=== PATIENT | female | born 1955 | race Caucasian/White ===

== ENCOUNTER 2016-12-05 14:11 | Inpatient (IN) ==
[2016-12-05] MEDS ORDERED: Vancomycin 1,000 MG in D5% in Water 250 ML IVPB ONE (14:25)
[2016-12-05] MEDS ORDERED: Piperacillin/Tazobactam 3.375 GM in D5% in Water (Mini-Bag+) 100 ML IVPB ONE (14:25)
--- NOTE | 2016-12-05 14:26 | Emergency Department Note ---
Disposition Clinical Impression: Severe sepsis Pneumonia Qualifiers: Pneumonia type: due to unspecified organism Laterality: right Lung location: unspecified part of lung Qualified Code(s): J18.9 - Pneumonia, unspecified organism Disposition: Admitted As Inpatient Condition: Critical Fever HPI - General Chief Complaint: ED Fever Stated Complaint: Fever, diarrhea Time Seen by Provider: 12/05/16 14:19 Source: patient, EMS Limitations: altered mental status Nursing Notes Reviewed: Yes Vital Signs Reviewed: Yes - History of Present Illness HPI Narrative: 61-year-old female presents to the emergency department via EMS with altered mental status and fever. Patient states that she has not been feeling well for the last couple days she denies specific symptoms that she appears to be shaking while in the emergency department. She answers all questions appropriately. She denies shortness of breath denies chest pain denies abdominal pain. Obviously she has has fevers and she appears ill. 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 Source: subjective Associated symptoms: Reports: denies other symptoms Improves with: nothing Worsens with: nothing Treatments prior to arrival fever: none - Related Data Home Medications Medication Instructions Recorded Confirmed Furosemide [Lasix] 60 mg PO BID 09/20/16 12/05/16 Pravastatin Sodium [Pravachol] 20 mg PO HS 09/20/16 12/05/16 Spironolactone [Aldactone] 100 mg PO DAILY 09/20/16 12/05/16 Venlafaxine XR (24 HR) [Effexor XR] 37.5 mg PO Q48H 09/20/16 12/05/16 Albuterol Sulfate [Albuterol 2 puff IH Q4H PRN 12/05/16 12/05/16 Inhaler] Ammonium Lactate [Katia-Hydrolac] 1 appl TP BID PRN 12/05/16 12/05/16 Buspirone HCl [Buspar] 5 mg PO BID 12/05/16 12/05/16 Fluticasone Propionate Nasal 50 - 100 mcg NS DAILY PRN 12/05/16 12/05/16 [Flonase] Lactulose 20 gm PO QID 12/05/16 12/05/16 Omeprazole [PriLOSEC] 40 mg PO QAM 12/05/16 12/05/16 Ondansetron HCl [Zofran] 4 mg PO Q8H PRN 12/05/16 12/05/16 Ranitidine HCl [Zantac] 150 mg PO HS 12/05/16 12/05/16 Rifaximin [Xifaxan] 550 mg PO BID 12/05/16 12/05/16 hydrOXYzine HCl [Hydroxyzine HCl] 25 mg PO TID PRN 12/05/16 12/05/16 Allergies Allergy/AdvReac Type Severity Reaction Status Date / Time egg Allergy Vomiting Verified 12/05/16 14:25 lactose AdvReac Gastrointestinal Verified 12/05/16 14:25 Upset milk AdvReac Gastrointestinal Verified 12/05/16 14:25 Upset Sulfa (Sulfonamide AdvReac Gastrointestinal Verified 12/05/16 14:25 Antibiotics) Upset Tetracycline AdvReac Hives Verified 12/05/16 14:25 vitamin E (d-alpha AdvReac Hives Verified 12/05/16 14:25 tocopherol) [vitamin E] vitamin d 3 Allergy Rash Uncoded 07/02/16 19:05 vitamin B-12 AdvReac Hives Uncoded 07/02/16 19:05 All systems ED: reviewed and negative except as stated. 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 - General Limitations: altered mental status General appearance: alert - Head Head exam: atraumatic - Eye Eye exam: Present: normal appearance, PERRL - ENT ENT exam: normal exam, normal oropharynx - Neck Neck exam: Present: normal inspection - Chest Chest inspection: Present: normal inspection, symmetric chest wall rise - Respiratory Respiratory exam: Present: normal lung sounds bilaterally. Absent: respiratory distress - Cardiovascular Cardiovascular exam: Present: regular rate, normal rhythm - Abdominal Exam Abdominal exam: Present: soft, Non-Tender - Extremities Exam Extremities exam: Present: normal inspection - Neurological Exam Neurological exam: Present: alert, oriented X3 - Psychiatric Psychiatric exam: Present: normal affect, anxious - Skin Skin exam: Present: warm, dry, intact Course Vital Signs Temperature 102.3 F H 12/05/16 14:12 Pulse Rate 120 12/05/16 14:12 Respiratory Rate 22 12/05/16 14:12 Blood Pressure 85/41 12/05/16 14:12 O2 Sat by Pulse Oximetry 91 12/05/16 14:12 Temperature 102.3 F H 12/05/16 14:12 Pulse Rate 94 12/05/16 17:10 Respiratory Rate 16 12/05/16 17:10 Blood Pressure 81/35 12/05/16 17:10 O2 Sat by Pulse Oximetry 95 12/05/16 17:10 Oxygen Delivery Oxygen Delivery Nasal Cannula Procedures - Central Line Placement Right Femoral Central Line Inserted*: Yes Central Line Insertion: emergent Consent Obtained: written consent Procedural Pause: verify patient name and date of Patient Placed on Monitor/Pulse Ox: Yes During the Procedure: clinician is wearing sterile gloves, cap, mask,& gown during insertion Central Line Prep: Chlorhexidine scrub Prep the Procedure Site: apply chloraprep to the skin using a back and forth scrubbing motion Local Anesthetic: lidocaine 1% Amount of anesthesia used (mL): 4 Ultrasound Used for Placement: Yes Central Line Lumen Inserted: triple Post Procedure: sutured in place, good blood return, all ports aspirated, flushed, capped, sterile dressing applied, guide wire removed and visualized Patient Tolerated Procedure: well, no complications Complications: none Name of Clinician Inserting Central Line: Judith BRITO Date: 12/05/16 Additional Comments: Patient tolerated procedure well. Fever - MDM Narrative Medical decision making narrative: We will start sepsis protocol including IV antibiotic therapy. Patient was hypotensive upon arrival and will require aggressive fluid management as well as aggressive treatment for possible sepsis. We will also check for sources of fever and admit patient once we have some additional data. I spoke with the hospitalist at 3:35 PM who suggested talking to the pipe line repairer to decide if she could benefit from a day in the ICU. I spoke with the pipe line repairer and we will bring her into the ICU for at least one day of fluid resuscitation and additional management. The patient was started on triple antibiotic therapy while in the emergency Department aggressive fluid resuscitation was also performed. Her mental status improvement of blood pressure systolically remained in the 95 range. Charge Entry came and evaluated patient agreed to accept her to the intensive care unit. Wanted a central line placement was done please see central line noted. Also wanted CT scans ordered unfortunately patient's blood pressure was too low to go to CT scanner. We did contact them once central line was placed determine if they wanted her to go to CT scan or up to the ICU they opted for ICU. Patient continued to mentate well throughout her stay but she had a lower blood pressure in the 85-95 range despite 3-4 L of IV hydration. - Lab Data Lab results reviewed: Yes I reviewed the patient's lab results. Result diagrams: 12/05/16 14:25 12/05/16 14:25 Lab Results 12/05/16 12/05/16 12/05/16 Range/Units 14:25 14:25 14:25 WBC 3.8 L (4.3-11.1) K/mcL RBC 3.45 L (3.82-4.97) M/mcL Hgb 12.0 (11.5-15.4) g/dL Hct 35.1 L (35.3-44.9) % MCV 101.7 H (83.0-100.0) fL MCH 34.8 H (28.0-33.3) pg MCHC 34.2 (31.6-35.5) g/dL RDW 15.4 H (11.5-14.5) % Plt Count 89 L (140-400) K/mcL MPV 8.6 L (9.4-12.4) fL Immature Gran % 1.0 (0-4) % Seg Neutrophils % 86.9 % Lymphocytes % 9.4 % Monocytes % 2.1 % Eosinophils % 0.3 % Basophils % 0.3 % Neutrophils # 3.3 (1.6-8.9) K/mcL Lymphocytes # 0.4 L (0.6-4.6) K/mcL Monocytes # 0.1 (0.0-1.3) K/mcL Eosinophils # 0.0 (0.0-0.6) K/mcL Basophils # 0.0 (0.0-0.2) K/mcL Nucleated RBCs/100 WBC 0.5 H (0) /100 WBC Immature Plt Fraction 1.4 (1.1-6.1) % PT 22.7 H (9.4-12.1) Seconds INR 2.1 APTT 47.6 H (26.0-36.0) Seconds Sodium 134 L (136-145) mEq/L Potassium 2.6 L (3.5-4.5) mEq/L Chloride 104 (98-109) mEq/L Carbon Dioxide 22 (19-29) mEq/L BUN 10 (7-20) mg/dL Creatinine 1.13 H (0.57-1.11) mg/dL Est GFR ( Amer) 59 L (> 60) Est GFR (Non-Af Amer) 49 L (> 60) BUN/Creatinine Ratio 9 (6-26) Glucose 61 L (70-99) mg/dL Calculated Osmolality 275 L (280-300) Lactic Acid (0.5-2.2) mmol/L Calcium 8.0 L (8.6-10.8) mg/dL Phosphorus 1.5 L (2.3-4.7) mg/dL Magnesium 0.9 L (1.6-2.6) mg/dL Total Bilirubin 5.1 H (0.2-1.2) mg/dL Direct Bilirubin 2.1 H (0.0-0.5) mg/dL Indirect Bilirubin 3.0 H (0.0-1.2) mg/dL AST 29 (5-34) Units/L ALT 17 (0-55) Units/L Alkaline Phosphatase 112 (38-126) Units/L Ammonia (18-72) mcmol/L Troponin I (0-0.03) ng/mL B-Natriuretic Peptide (0-100) pg/mL Serum Total Protein 5.6 L (6.0-8.3) g/dL Albumin 2.0 L (3.5-5.0) g/dL Globulin 3.6 H (2.4-3.5) g/dL Albumin/Globulin Ratio 0.6 L (1.1-2.2) 12/05/16 12/05/16 12/05/16 Range/Units 14:25 14:25 14:25 WBC (4.3-11.1) K/mcL RBC (3.82-4.97) M/mcL Hgb (11.5-15.4) g/dL Hct (35.3-44.9) % MCV (83.0-100.0) fL MCH (28.0-33.3) pg MCHC (31.6-35.5) g/dL RDW (11.5-14.5) % Plt Count (140-400) K/mcL MPV (9.4-12.4) fL Immature Gran % (0-4) % Seg Neutrophils % % Lymphocytes % % Monocytes % % Eosinophils % % Basophils % % Neutrophils # (1.6-8.9) K/mcL Lymphocytes # (0.6-4.6) K/mcL Monocytes # (0.0-1.3) K/mcL Eosinophils # (0.0-0.6) K/mcL Basophils # (0.0-0.2) K/mcL Nucleated RBCs/100 WBC (0) /100 WBC Immature Plt Fraction (1.1-6.1) % PT (9.4-12.1) Seconds INR APTT (26.0-36.0) Seconds Sodium (136-145) mEq/L Potassium (3.5-4.5) mEq/L Chloride (98-109) mEq/L Carbon Dioxide (19-29) mEq/L BUN (7-20) mg/dL Creatinine (0.57-1.11) mg/dL Est GFR ( Amer) (> 60) Est GFR (Non-Af Amer) (> 60) BUN/Creatinine Ratio (6-26) Glucose (70-99) mg/dL Calculated Osmolality (280-300) Lactic Acid 5.3 H* (0.5-2.2) mmol/L Calcium (8.6-10.8) mg/dL Phosphorus (2.3-4.7) mg/dL Magnesium (1.6-2.6) mg/dL Total Bilirubin (0.2-1.2) mg/dL Direct Bilirubin (0.0-0.5) mg/dL Indirect Bilirubin (0.0-1.2) mg/dL AST (5-34) Units/L ALT (0-55) Units/L Alkaline Phosphatase (38-126) Units/L Ammonia (18-72) mcmol/L Troponin I 0.02 (0-0.03) ng/mL B-Natriuretic Peptide 117 H (0-100) pg/mL Serum Total Protein (6.0-8.3) g/dL Albumin (3.5-5.0) g/dL Globulin (2.4-3.5) g/dL Albumin/Globulin Ratio (1.1-2.2) 12/05/16 Range/Units 15:07 WBC (4.3-11.1) K/mcL RBC (3.82-4.97) M/mcL Hgb (11.5-15.4) g/dL Hct (35.3-44.9) % MCV (83.0-100.0) fL MCH (28.0-33.3) pg MCHC (31.6-35.5) g/dL RDW (11.5-14.5) % Plt Count (140-400) K/mcL MPV (9.4-12.4) fL Immature Gran % (0-4) % Seg Neutrophils % % Lymphocytes % % Monocytes % % Eosinophils % % Basophils % % Neutrophils # (1.6-8.9) K/mcL Lymphocytes # (0.6-4.6) K/mcL Monocytes # (0.0-1.3) K/mcL Eosinophils # (0.0-0.6) K/mcL Basophils # (0.0-0.2) K/mcL Nucleated RBCs/100 WBC (0) /100 WBC Immature Plt Fraction (1.1-6.1) % PT (9.4-12.1) Seconds INR APTT (26.0-36.0) Seconds Sodium (136-145) mEq/L Potassium (3.5-4.5) mEq/L Chloride (98-109) mEq/L Carbon Dioxide (19-29) mEq/L BUN (7-20) mg/dL Creatinine (0.57-1.11) mg/dL Est GFR ( Amer) (> 60) Est GFR (Non-Af Amer) (> 60) BUN/Creatinine Ratio (6-26) Glucose (70-99) mg/dL Calculated Osmolality (280-300) Lactic Acid (0.5-2.2) mmol/L Calcium (8.6-10.8) mg/dL Phosphorus (2.3-4.7) mg/dL Magnesium (1.6-2.6) mg/dL Total Bilirubin (0.2-1.2) mg/dL Direct Bilirubin (0.0-0.5) mg/dL Indirect Bilirubin (0.0-1.2) mg/dL AST (5-34) Units/L ALT (0-55) Units/L Alkaline Phosphatase (38-126) Units/L Ammonia 34 (18-72) mcmol/L Troponin I (0-0.03) ng/mL B-Natriuretic Peptide (0-100) pg/mL Serum Total Protein (6.0-8.3) g/dL Albumin (3.5-5.0) g/dL Globulin (2.4-3.5) g/dL Albumin/Globulin Ratio (1.1-2.2) - Radiology Data Radiology results reviewed: Yes I reviewed the patient's radiology results. Patient with right-sided effusion and pneumonia. - EKG Data EKG attestation: Yes I reviewed and interpreted this EKG. EKG shows normal: sinus rhythm Rate: tachycardia Interpretation: no acute changes Critical Care Time Critical Care Time: Yes Total Critical Care Time: 70 Attestation: Total care time 35 minutes managing patient's sepsis.
[2016-12-05] MEDS ORDERED: Ibuprofen 600 MG TABLET PO ONE (14:27)
[2016-12-05] MEDS: 0.9 % Sodium Chloride 1,000 ML IVC SCH ×3 (14:33→19:44)
[2016-12-05 14:36] LABS: Eosinophils % 0.3 %; Hematocrit 35.1 % (35.3-44.9); Red Cell Distribution Width 15.4 % (11.5-14.5)
[2016-12-05 14:38] LABS: Basophils % 0.3 %; Immature Platelets 1.4 % (1.1-6.1); Lymphocytes # 0.4 K/mcL (0.6-4.6); Lymphocytes % 9.4 %; Mean Corpuscular HGB Conc 34.2 g/dL (31.6-35.5); Mean Corpuscular Hemoglobin 34.8 pg (28.0-33.3); Mean Corpuscular Volume 101.7 fL (83.0-100.0); Mean Platelet Volume 8.6 fL (9.4-12.4); Monocytes # 0.1 K/mcL (0.0-1.3); Monocytes % 2.1 %; Neutrophils # 3.3 K/mcL (1.6-8.9); Nucleated Red Blood Cells 0.5 /100 WBC (0); Red Blood Count 3.45 M/mcL (3.82-4.97); Segmented Neutrophils % 86.9 %
[2016-12-05 14:41] LABS: INR 2.1; Prothrombin Time 22.7 Seconds (9.4-12.1)
[2016-12-05 14:44] LABS: Activated Partial Thrombo Time 47.6 Seconds (26.0-36.0)
[2016-12-05 14:53] LABS: Albumin/Globulin Ratio 0.6 (1.1-2.2); Bilirubin,Direct 2.1 mg/dL (0.0-0.5); Bilirubin,Total 5.1 mg/dL (0.2-1.2); Globulin 3.6 g/dL (2.4-3.5); Magnesium 0.9 mg/dL (1.6-2.6); Phosphorous 1.5 mg/dL (2.3-4.7); Platelet Count 89 K/mcL (140-400); Potassium 2.6 mEq/L (3.5-4.5); Total Protein 5.6 g/dL (6.0-8.3)
[2016-12-05] MEDS ORDERED: Levofloxacin 750 MG/150 ML 750 MG/150 ML BAG IVPB ONE (15:06)
[2016-12-05] MEDS ORDERED: 0.9 % Sodium Chloride 1,000 ML IVC ONE ×2 (15:50→18:48)
--- NOTE | 2016-12-05 16:07 | Pulmonology History & Physical ---
<Evens Carr - Last Filed: 12/05/16 17:03> Date of Encounter: 12/05/16 Time of Encounter: 16:05 Assessment and Plan (1) Severe sepsis Current visit: Yes Status: Acute Likely secondary to pneumonia, but will obtain CT ab/pelvis to look for additional sources She was given Levaquin and Zosyn which we will continue Cultures obtained in the ED, awaiting results If she does not respond to fluid resuscitation, will need CVC for pressor (2) Community acquired pneumonia Current visit: Yes Status: Acute Treatment with Levaquin/Zosyn as above She does not have history of frequent hospitalizations and has no risk for MRSA Qualifiers: Qualified Code(s): J18.9 - Pneumonia, unspecified organism (3) DELMI (acute kidney injury) Current visit: Yes Status: Acute Creatinine mildly elevated at 1.13, without any baseline dysfunction Likely pre-renal in setting of sepsis Will start on maintenance fluids and trend Cr, electrolytes (4) Lactic acidosis Current visit: Yes Status: Acute Lactic acid elevated at 7.5 upon admission secondary to sepsis Will start fluid hydration as above and trend levels tomorrow (5) Hypokalemia Current visit: Yes Status: Acute Potassium initially 2.6 likely secondary to GI losses Will start on replacement orders and check BMP in AM (6) Hypomagnesemia Current visit: Yes Status: Acute Initial levels were 0.9 Will start on replacement protocol (7) DVT prophylaxis Current visit: Yes Status: Acute Heparin 5000 units BID History of Present Illness Chief complaint: fever HPI: Ms. Rivas is a 61 year old female who presents with fever that started earlier this morning. is at bedside and reported the temperature to be 103. She complained of nausea, vomiting, generalized weakness and back pain that started today as well. Denies any issues with breathing, coughing, urinary or GI problems. 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 Patient does not use oxygen at home but does have as needed rescue inhalers. Past Med Surg Social Fam HX - Past Medical History Medical history: cirrhosis, hepatitis, hypertension, liver disease Psychiatric history: anxiety, depression - Past Surgical History Surgical History: cholecystectomy - Social History Smoking Status: Current every day smoker Smokeless Tobacco Status: No Alcohol use: none Drug use: marijuana Medications and Allergies Furosemide [Lasix] 60 mg PO BID 09/20/16 [History] Pravastatin Sodium [Pravachol] 20 mg PO HS 09/20/16 [History] Spironolactone [Aldactone] 100 mg PO DAILY 09/20/16 [History] Venlafaxine XR (24 HR) [Effexor XR] 37.5 mg PO Q48H 09/20/16 [History] Albuterol Sulfate [Albuterol Inhaler] 2 puff IH Q4H PRN 12/05/16 [History] Ammonium Lactate [Katia-Hydrolac] 1 appl TP BID PRN 12/05/16 [History] Buspirone HCl [Buspar] 5 mg PO BID 12/05/16 [History] Fluticasone Propionate Nasal [Flonase] 50 - 100 mcg NS DAILY PRN 12/05/16 [ History] Lactulose 20 gm PO QID 12/05/16 [History] Omeprazole [PriLOSEC] 40 mg PO QAM 12/05/16 [History] Ondansetron HCl [Zofran] 4 mg PO Q8H PRN 12/05/16 [History] Ranitidine HCl [Zantac] 150 mg PO HS 12/05/16 [History] Rifaximin [Xifaxan] 550 mg PO BID 12/05/16 [History] hydrOXYzine HCl [Hydroxyzine HCl] 25 mg PO TID PRN 12/05/16 [History] 3 Allergy/AdvReac Type Severity Reaction Status Date / Time egg Allergy Vomiting Verified 12/05/16 14:25 lactose AdvReac Gastrointestinal Verified 12/05/16 14:25 Upset milk AdvReac Gastrointestinal Verified 12/05/16 14:25 Upset Sulfa (Sulfonamide AdvReac Gastrointestinal Verified 12/05/16 14:25 Antibiotics) Upset Tetracycline AdvReac Hives Verified 12/05/16 14:25 vitamin E (d-alpha AdvReac Hives Verified 12/05/16 14:25 tocopherol) [vitamin E] vitamin d 3 Allergy Rash Uncoded 07/02/16 19:05 vitamin B-12 AdvReac Hives Uncoded 07/02/16 19:05 All Systems: A 10-system review of systems was performed and is negative for pertinent findings except as documented above in the HPI. - Constitutional Constitutional: chills, fever(s), frequent falls, weakness - Respiratory Respiratory: no cough, no dyspnea, no dyspnea on exertion - Gastrointestinal Gastrointestinal: abdominal pain, nausea, vomiting - Genitourinary Genitourinary: no urinary frequency, no urinary incontinence Physical Examination General appearance: no acute distress, alert Eyes: nonicteric ENT: oropharynx moist Neck: supple Effort: normal Inspection: normal Auscultation: bilateral: clear Percussion: bilateral: not dull Tactile fremitus: bilateral: normal Cardiovascular: other (tachycardic, but regular) Gastrointestinal: normoactive bowel sounds, non-distended Integumentary: cellulitis (right anterior tibia) Extremities: no cyanosis, no edema, no clubbing Musculoskeletal: no deformities, ROM normal normal mental status, non-focal exam mood appropriate, affect normal Results - Laboratory Findings CBC and BMP: 12/05/16 14:25 12/05/16 14:25 PT/INR, D-dimer PT 22.7 Seconds (9.4-12.1) H 12/05/16 14:25 Abnormal lab findings: Abnormal lab results WBC 3.8 K/mcL (4.3-11.1) L 12/05/16 14:25 RBC 3.45 M/mcL (3.82-4.97) L 12/05/16 14:25 Hct 35.1 % (35.3-44.9) L 12/05/16 14:25 MCV 101.7 fL (83.0-100.0) H 12/05/16 14:25 MCH 34.8 pg (28.0-33.3) H 12/05/16 14:25 RDW 15.4 % (11.5-14.5) H 12/05/16 14:25 Plt Count 89 K/mcL (140-400) L 12/05/16 14:25 MPV 8.6 fL (9.4-12.4) L 12/05/16 14:25 Lymphocytes # 0.4 K/mcL (0.6-4.6) L 12/05/16 14:25 Nucleated RBCs/100 WBC 0.5 /100 WBC (0) H 12/05/16 14:25 PT 22.7 Seconds (9.4-12.1) H 12/05/16 14:25 APTT 47.6 Seconds (26.0-36.0) H 12/05/16 14:25 Sodium 134 mEq/L (136-145) L 12/05/16 14:25 Potassium 2.6 mEq/L (3.5-4.5) L 12/05/16 14:25 Creatinine 1.13 mg/dL (0.57-1.11) H 12/05/16 14:25 Est GFR ( Amer) 59 (> 60) L 12/05/16 14:25 Est GFR (Non-Af Amer) 49 (> 60) L 12/05/16 14:25 Glucose 61 mg/dL (70-99) L 12/05/16 14:25 Calculated Osmolality 275 (280-300) L 12/05/16 14:25 Lactic Acid 5.3 mmol/L (0.5-2.2) H* 12/05/16 14:25 Calcium 8.0 mg/dL (8.6-10.8) L 12/05/16 14:25 Phosphorus 1.5 mg/dL (2.3-4.7) L 12/05/16 14:25 Magnesium 0.9 mg/dL (1.6-2.6) L 12/05/16 14:25 Total Bilirubin 5.1 mg/dL (0.2-1.2) H 12/05/16 14:25 Direct Bilirubin 2.1 mg/dL (0.0-0.5) H 12/05/16 14:25 Indirect Bilirubin 3.0 mg/dL (0.0-1.2) H 12/05/16 14:25 B-Natriuretic Peptide 117 pg/mL (0-100) H 12/05/16 14:25 Serum Total Protein 5.6 g/dL (6.0-8.3) L 12/05/16 14:25 Albumin 2.0 g/dL (3.5-5.0) L 12/05/16 14:25 Globulin 3.6 g/dL (2.4-3.5) H 12/05/16 14:25 Albumin/Globulin Ratio 0.6 (1.1-2.2) L 12/05/16 14:25 <Mercy Rosales M - Last Filed: 12/05/16 22:33> Date of Encounter: 12/05/16 History of Present Illness HPI: Ms. Rivas is a 61 year old female Past Med Surg Social Fam HX - Family History Mother History Unknown: Yes Father Living Status: Cause of : aneurysm Sister Living Status: Age at : 55 Cause of : lung cancer All Systems: A 10-system review of systems was performed and is negative for pertinent findings except as documented above in the HPI. Physical Examination Vital Signs: Vital Signs, Last 4 Hours Temp Pulse Resp BP Pulse Ox 12/05/16 22:00 85 28 82/50 94 12/05/16 21:03 23 80/43 93 12/05/16 21:00 82 24 80/43 91 12/05/16 20:28 85 12/05/16 20:20 98.7 F 12/05/16 20:00 85 26 64/39 94 12/05/16 19:00 84 22 60/38 93 12/05/16 18:45 86 24 66/40 93 Results - Laboratory Findings CBC and BMP: 12/05/16 14:25 12/05/16 14:25 ABG ABG pH 7.38 pH Units (7.32-7.45) 12/05/16 17:55 ABG pCO2 26 mmHg (35-45) L 12/05/16 17:55 ABG pO2 68 mmHg (85-104) L 12/05/16 17:55 ABG O2 Saturation 93 % (95-98) L 12/05/16 17:55 PT/INR, D-dimer PT 22.7 Seconds (9.4-12.1) H 12/05/16 14:25 Abnormal lab findings: Abnormal lab results WBC 3.8 K/mcL (4.3-11.1) L 12/05/16 14:25 RBC 3.45 M/mcL (3.82-4.97) L 12/05/16 14:25 Hct 35.1 % (35.3-44.9) L 12/05/16 14:25 MCV 101.7 fL (83.0-100.0) H 12/05/16 14:25 MCH 34.8 pg (28.0-33.3) H 12/05/16 14:25 RDW 15.4 % (11.5-14.5) H 12/05/16 14:25 Plt Count 89 K/mcL (140-400) L 12/05/16 14:25 MPV 8.6 fL (9.4-12.4) L 12/05/16 14:25 Lymphocytes # 0.4 K/mcL (0.6-4.6) L 12/05/16 14:25 Nucleated RBCs/100 WBC 0.5 /100 WBC (0) H 12/05/16 14:25 PT 22.7 Seconds (9.4-12.1) H 12/05/16 14:25 APTT 47.6 Seconds (26.0-36.0) H 12/05/16 14:25 ABG pCO2 26 mmHg (35-45) L 12/05/16 17:55 ABG pO2 68 mmHg (85-104) L 12/05/16 17:55 ABG HCO3 15 mEq/L (21-27) L 12/05/16 17:55 ABG Total CO2 16 mEq/L (20-26) L 12/05/16 17:55 ABG O2 Saturation 93 % (95-98) L 12/05/16 17:55 ABG Base Excess -9 mEq/L (-2 to 3) L 12/05/16 17:55 Sodium 134 mEq/L (136-145) L 12/05/16 14:25 Potassium 2.6 mEq/L (3.5-4.5) L 12/05/16 14:25 Creatinine 1.13 mg/dL (0.57-1.11) H 12/05/16 14:25 Est GFR ( Amer) 59 (> 60) L 12/05/16 14:25 Est GFR (Non-Af Amer) 49 (> 60) L 12/05/16 14:25 Glucose 61 mg/dL (70-99) L 12/05/16 14:25 POC Glucose 92 (58-89) H 12/05/16 17:49 Calculated Osmolality 275 (280-300) L 12/05/16 14:25 Lactic Acid 7.5 mmol/L (0.5-2.2) H* 12/05/16 16:19 Calcium 8.0 mg/dL (8.6-10.8) L 12/05/16 14:25 Ionized Calcium 1.02 mmol/L (1.15-1.35) L 12/05/16 19:24 Phosphorus 1.5 mg/dL (2.3-4.7) L 12/05/16 14:25 Magnesium 0.9 mg/dL (1.6-2.6) L 12/05/16 14:25 Total Bilirubin 5.1 mg/dL (0.2-1.2) H 12/05/16 14:25 Direct Bilirubin 2.1 mg/dL (0.0-0.5) H 12/05/16 14:25 Indirect Bilirubin 3.0 mg/dL (0.0-1.2) H 12/05/16 14:25 B-Natriuretic Peptide 117 pg/mL (0-100) H 12/05/16 14:25 Serum Total Protein 5.6 g/dL (6.0-8.3) L 12/05/16 14:25 Albumin 2.0 g/dL (3.5-5.0) L 12/05/16 14:25 Globulin 3.6 g/dL (2.4-3.5) H 12/05/16 14:25 Albumin/Globulin Ratio 0.6 (1.1-2.2) L 12/05/16 14:25 Ur Leukocyte Esterase Small (Negative) H 12/05/16 16:00 Urine Microscopic RBC 3-5 per hpf (0-3) H 12/05/16 16:00 Urine Microscopic WBC 15-30 per hpf (0-3) H 12/05/16 16:00 Ur Squamous Epith Cells Many per lpf (None-Few) H 12/05/16 16:00 Urine Bacteria Many per hpf (None-Few) H 12/05/16 16:00 Ur Culture Indicated? YES (NO) A 12/05/16 16:00 - Attending Attestation I examined this patient and my medical decision-making was reviewed with the Resident Physician. I agree with the documented findings, disposition and treatment plan as described except to the extent set forth below. Patient seen and examined.I was called by the emergency room physician to see patient and when patient was evaluated she was not feeling good and complaining of back pain for 5 days. Labs, radiology, chart personally reviewed. Agree with resident's history and physical, assessment, plan with following comments: BEEF GRADER: Patient does not follows commands, Pulmonary: Acceptable oxygenation and ventilation. Cardiovascular: patient with more evidence of severe sepsis/septic shock and she had symptoms of hypoperfusion. Her skin does feel cold to touch plan poor capillary refill and vidence of hypoperfusion and she looks pale. Fluid resuscitation and central line placed for vasopressors.I have discussed with the emergency physician and as or central line placement. Resuscitation with colloid since she has history of liver cirrhosis GI: Nutrition per dietary and GI prophylaxis per routine. Patient has history of cirrhosis and that's makes the prognosis even worse. Heme: DVT prophylaxis per routine ID: Continue antibiotics and plan to de-escalation. Lactic acidosis and source is not clear currently and pneumonia is a possibility and appearance and is not identified, however intra-abdominal diseases cannot be ruled out. I have asked for a CT chest and also abdomen for further evaluation. Renal; urine out put and renal funtion reviewed. Endorcine: blood glucose is monitored Lines: all lines checked and no evidence of infections Skin: skin care to prevent pressure ulcers per nursing routine care discussed with the family at the bedside. I spent 35 min of Critical Care time with this patient. It involved decision making of high complexity to assess, manipulate, and support vital organ system failure and/or to prevent further life threatening deterioration of the patient' s condition. The time involved in the performance of separately reportable procedures was not counted toward critical care time.
[2016-12-05] MEDS ORDERED: Acetaminophen 325 MG TABLET PO PRN (16:18)
[2016-12-05] MEDS ORDERED: Naloxone 0.4 MG/ML INJ IVP PRN (16:18)
[2016-12-05 16:21] LABS: Bilirubin,Urine Negative (Negative); Blood,Urine Negative (Negative); Color,Urine Yellow (Yellow); Glucose,Urine (UA) Normal (Normal); Ketones,Urine Negative (Negative); Leukocyte Esterase,Urine Small (Negative); Nitrite,Urine Negative (Negative); PH,Urine 6.5 pH Units (5.0-8.0); Protein,Urine Negative (Neg-Trace); Specific Gravity,Urine 1.014 (1.010-1.025); Urobilinogen,Urine Normal (Normal)
[2016-12-05 16:23] LABS: Bacteria,Urine Many per hpf (None-Few); Hyaline Casts,Urine None Seen per lpf (None-Few); Squamous Epithelial Cell,Urine Many per lpf (None-Few); WBC,Urine 15-30 per hpf (0-3)
[2016-12-05 16:24] LABS: Clarity,Urine Slightly Hazy (Clear)
[2016-12-05] MEDS ORDERED: Potassium Phosphate 44 MEQ in 0.9 % Sodium Chloride 250 ML IVPB PRN (17:06)
[2016-12-05 18:01] LABS: ABG Base Excess -9 mEq/L (-2 to 3); ABG HCO3 15 mEq/L (21-27); ABG Oxygen Saturation 93 % (95-98); ABG PCO2 26 mmHg (35-45); ABG PH 7.38 pH Units (7.32-7.45); ABG PO2 68 mmHg (85-104); ABG TCO2 16 mEq/L (20-26)
[2016-12-05] MEDS: *HR* Heparin 5,000 UNIT/ML VIAL SQ SCH (19:43)
[2016-12-05] MEDS: Potassium Chloride 40 MEQ/200 ML BAG IVPB PRN (19:44)
[2016-12-05] MEDS: Magnesium Sulfate 2 GM in D5% in Water 100 ML IVPB PRN (19:44)
[2016-12-05] MEDS: Nicotine 21 MG PATCH.TD24 TD SCH (20:18)
[2016-12-05] MEDS: Norepinephrine 4 MG in D5% in Water 250 ML IVC SCH (20:19)
[2016-12-05] MEDS: Calcium Gluconate 1,000 MG in D5% in Water 100 ML IVPB PRN (20:46)
[2016-12-05] MEDS: *HR* OxyCODONE Immed Rel 5 MG TABLET PO PRN (20:55)
[2016-12-05] MEDS: Piperacillin/Tazobactam 3.375 GM in D5% in Water (Mini-Bag+) 100 ML IVPB SCH (21:21)
[2016-12-06] MEDS: *HR* Morphine 2 MG/ML SYRINGE IVP PRN ×3 (00:16→19:10)
[2016-12-06] MEDS: hydrOXYzine pamoate 25 MG CAPSULE PO PRN ×2 (00:31→21:13)
[2016-12-06] MEDS: *HR* OxyCODONE Immed Rel 5 MG TABLET PO PRN ×3 (03:38→21:14)
[2016-12-06] MEDS: Norepinephrine 4 MG in D5% in Water 250 ML IVC SCH ×4 (03:44→21:14)
[2016-12-06 03:49] LABS: Mean Corpuscular Hemoglobin 34.8 pg (28.0-33.3); Red Cell Distribution Width 15.9 % (11.5-14.5)
[2016-12-06 03:51] LABS: Hematocrit 32.5 % (35.3-44.9); Hemoglobin 10.9 g/dL (11.5-15.4); Immature Platelets 2.4 % (1.1-6.1); Mean Corpuscular HGB Conc 33.5 g/dL (31.6-35.5); Mean Corpuscular Volume 103.8 fL (83.0-100.0); Mean Platelet Volume 9.6 fL (9.4-12.4); Red Blood Count 3.13 M/mcL (3.82-4.97)
[2016-12-06 04:00] LABS: Potassium 3.4 mEq/L (3.5-4.5)
[2016-12-06 04:01] LABS: Calcium 7.2 mg/dL (8.6-10.8)
[2016-12-06 04:07] LABS: Phosphorous 4.3 mg/dL (2.3-4.7)
[2016-12-06] MEDS ORDERED: 0.9 % Sodium Chloride 500 ML IVC ONE (04:17)
[2016-12-06 04:24] LABS: Platelet Count 76 K/mcL (140-400)
[2016-12-06] MEDS: Potassium Chloride 40 MEQ/200 ML BAG IVPB PRN ×2 (04:26→18:18)
[2016-12-06] MEDS: 0.9 % Sodium Chloride 1,000 ML IVC SCH ×3 (04:29→22:26)
[2016-12-06] MEDS: Magnesium Sulfate 2 GM in D5% in Water 100 ML IVPB PRN ×2 (04:36→18:12)
[2016-12-06] MEDS: Hydrocortisone Sodium Succ 100 MG/2 ML VIAL IVP SCH ×3 (04:36→18:11)
[2016-12-06 05:05] LABS: Lymphocytes # 0.3 K/mcL (0.6-4.6); Monocytes # 0.5 K/mcL (0.0-1.3); Neutrophils # 24.1 K/mcL (1.6-8.9)
[2016-12-06 05:06] LABS: Anisocytosis 1+ (Not Present); Macrocytosis Present (Not Present); Platelet Estimate Decreased (Normal); Polychromasia 1+ (Not Present)
[2016-12-06] MEDS: Piperacillin/Tazobactam 3.375 GM in D5% in Water (Mini-Bag+) 100 ML IVPB SCH ×3 (05:09→21:14)
[2016-12-06] MEDS: *HR* Heparin 5,000 UNIT/ML VIAL SQ SCH (05:10)
[2016-12-06] MEDS: Calcium Gluconate 1,000 MG in D5% in Water 100 ML IVPB PRN ×2 (06:25→18:34)
[2016-12-06] MEDS ORDERED: Levofloxacin 750 MG/150 ML 750 MG/150 ML BAG IVPB SCH (09:00)
[2016-12-06] MEDS ORDERED: Pantoprazole 40 MG VIAL IVP SCH (09:00)
--- NOTE | 2016-12-06 10:48 | Pulmonology Progress Note ---
<ConnieMercy M - Last Filed: 12/06/16 13:57> Date of Encounter: 12/06/16 Objective PUL Vital signs: Last Vital Signs Temp 97.5 F L 12/06/16 12:07 Pulse 95 12/06/16 13:00 Resp 12 12/06/16 13:00 BP 114/66 12/06/16 13:00 Pulse Ox 92 12/06/16 13:00 Results - Laboratory Findings CBC and BMP: 12/06/16 03:35 12/06/16 03:35 ABG ABG pH 7.38 pH Units (7.32-7.45) 12/05/16 17:55 ABG pCO2 26 mmHg (35-45) L 12/05/16 17:55 ABG pO2 68 mmHg (85-104) L 12/05/16 17:55 ABG O2 Saturation 93 % (95-98) L 12/05/16 17:55 PT/INR, D-dimer PT 22.7 Seconds (9.4-12.1) H 12/05/16 14:25 Abnormal lab findings: Abnormal lab results WBC 25.1 K/mcL (4.3-11.1) H D 12/06/16 03:35 RBC 3.13 M/mcL (3.82-4.97) L 12/06/16 03:35 Hgb 10.9 g/dL (11.5-15.4) L 12/06/16 03:35 Hct 32.5 % (35.3-44.9) L 12/06/16 03:35 MCV 103.8 fL (83.0-100.0) H 12/06/16 03:35 MCH 34.8 pg (28.0-33.3) H 12/06/16 03:35 RDW 15.9 % (11.5-14.5) H 12/06/16 03:35 Plt Count 76 K/mcL (140-400) L 12/06/16 03:35 Band Neutrophils % 23.0 % (0-4) H 12/06/16 03:35 Metamyelocytes % 1.0 % (0) H 12/06/16 03:35 Neutrophils # 24.1 K/mcL (1.6-8.9) H 12/06/16 03:35 Lymphocytes # 0.3 K/mcL (0.6-4.6) L 12/06/16 03:35 Nucleated RBCs/100 WBC 0.5 /100 WBC (0) H 12/05/16 14:25 Platelet Estimate Decreased (Normal) L 12/06/16 03:35 Polychromasia 1+ (Not Present) A 12/06/16 03:35 Anisocytosis 1+ (Not Present) A 12/06/16 03:35 Macrocytosis Present (Not Present) A 12/06/16 03:35 PT 22.7 Seconds (9.4-12.1) H 12/05/16 14:25 APTT 47.6 Seconds (26.0-36.0) H 12/05/16 14:25 ABG pCO2 26 mmHg (35-45) L 12/05/16 17:55 ABG pO2 68 mmHg (85-104) L 12/05/16 17:55 ABG HCO3 15 mEq/L (21-27) L 12/05/16 17:55 ABG Total CO2 16 mEq/L (20-26) L 12/05/16 17:55 ABG O2 Saturation 93 % (95-98) L 12/05/16 17:55 ABG Base Excess -9 mEq/L (-2 to 3) L 12/05/16 17:55 Sodium 129 mEq/L (136-145) L 12/06/16 03:35 Potassium 3.4 mEq/L (3.5-4.5) L 12/06/16 03:35 Carbon Dioxide 15 mEq/L (19-29) L 12/06/16 03:35 Creatinine 1.58 mg/dL (0.57-1.11) H 12/06/16 03:35 Est GFR ( Amer) 40 (> 60) L 12/06/16 03:35 Est GFR (Non-Af Amer) 33 (> 60) L 12/06/16 03:35 Glucose 106 mg/dL (70-99) H 12/06/16 03:35 POC Glucose 92 (58-89) H 12/05/16 17:49 Calculated Osmolality 269 (280-300) L 12/06/16 03:35 Lactic Acid 4.3 mmol/L (0.5-2.2) H* 12/06/16 03:35 Calcium 7.2 mg/dL (8.6-10.8) L 12/06/16 03:35 Ionized Calcium 1.02 mmol/L (1.15-1.35) L 12/06/16 03:35 Magnesium 1.0 mg/dL (1.6-2.6) L 12/06/16 03:35 Total Bilirubin 5.1 mg/dL (0.2-1.2) H 12/05/16 14:25 Direct Bilirubin 2.1 mg/dL (0.0-0.5) H 12/05/16 14:25 Indirect Bilirubin 3.0 mg/dL (0.0-1.2) H 12/05/16 14:25 B-Natriuretic Peptide 117 pg/mL (0-100) H 12/05/16 14:25 Serum Total Protein 5.6 g/dL (6.0-8.3) L 12/05/16 14:25 Albumin 2.0 g/dL (3.5-5.0) L 12/05/16 14:25 Globulin 3.6 g/dL (2.4-3.5) H 12/05/16 14:25 Albumin/Globulin Ratio 0.6 (1.1-2.2) L 12/05/16 14:25 Ur Leukocyte Esterase Small (Negative) H 12/05/16 16:00 Urine Microscopic RBC 3-5 per hpf (0-3) H 12/05/16 16:00 Urine Microscopic WBC 15-30 per hpf (0-3) H 12/05/16 16:00 Ur Squamous Epith Cells Many per lpf (None-Few) H 12/05/16 16:00 Urine Bacteria Many per hpf (None-Few) H 12/05/16 16:00 Ur Culture Indicated? YES (NO) A 12/05/16 16:00 - Microbiology Findings Microbiology Findings: Microbiology, Last 48 Hours 12/05/16 16:00 Urine Culture - Preliminary Urine,Clean Catch Escherichia coli - Clinical Findings Intake & Output: Intake & Output 12/05/16 12/06/16 12/06/16 23:59 07:59 15:59 Intake Total 3730 / 3730 2422 / 2422 354 / 354 Output Total 50 / 50 125 / 125 Balance 3705 / 3705 2372 / 2372 229 / 229 Weight 88.1 kg Consult Discharge Plan - Plan Referrals: Ina Nielsen DO [Primary Care Provider] - - Attending Attestation I examined this patient and my medical decision-making was reviewed with the Resident Physician. I agree with the documented findings, disposition and treatment plan as described except to the extent set forth below. Patient seen and examined. Labs, radiology, chart personally reviewed. 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 Pulmonary: Acceptable oxygenation and ventilation. Patient needs noninvasive ventilation, however due to her agitation she does not completely tolerates it. Hopefully with Xanax it would help. Reviewed CT chest with evidence of moderate size pleural effusion which is most likely due to her liver disease and looks chronic. Will consider thoracentesis if clinically does not improve. Cardiovascular: Patient remained in shock and most likely a vasodilatory in nature. GI: Nutrition per dietary and GI prophylaxis per routine. Patient with history of liver cirrhosis and lactic acidosis clearance could be impaired. Heme: DVT prophylaxis per routine. Coagulopathy most likely secondary to liver disease and will stop heparin and she has pain in her lower extremities and cannot tolerate mechanical prophylaxis. ID: Continue antibiotics and plan to de-escalation. Is still not clear the source of her septic shock suspect pneumonia, however most likely this is atelectasis. Renal; urine out put and renal funtion reviewed. Due to her liver disease. IV fluid resuscitation will be primarily with Colyte and vasopressors. Endorcine: blood glucose is monitored Lines: all lines checked and no evidence of infections Skin: skin care to prevent pressure ulcers per nursing routine care I spent 32 min of Critical Care time with this patient. It involved decision making of high complexity to assess, manipulate, and support vital organ system failure and/or to prevent further life threatening deterioration of the patient' s condition. The time involved in the performance of separately reportable procedures was not counted toward critical care time. <Arie Gardner - Last Filed: 12/06/16 18:29> Date of Encounter: 12/06/16 Time of Encounter: 10:45 Assessment and Plan (1) Severe sepsis Current Visit: Yes Status: Acute Source currently thought to be from PNA, but will also consider cellulitis as source. Low risk for MRSA due to no history of hospitalization or exposure - WBC 3.8 -> 25.1 today, neutrophil bands is now elevated to 23.0 - Lactate 4.3 today - do not give stress steroid dose - CT abd/pelvis - pending - MAP 82 on 12 of levophed - abx: day 2 zosyn + day 2 levaquin + started vanco - Cx collected in ED - pending (2) Right leg pain Current Visit: Yes Status: Acute most likely cellulitis vs less likely DVT vs less likely compartment syndrome. Patient reports starting on 12/06/16 her right "stewart" is in pain. Overnight nurse did not report warmth, but today when evaluated, right pretibial was warm and tender to light touch. Patient INR is 2.1, and cannot be put on heparin due to coagulopathy and bruising. And mechanical DVT prophylaxis would be in contact with current site of complaint. Patient has a history of cellulitis. She's been bed bound for 48 hours, and her last surgery was in August, more than 4 weeks ago. is a current smoker. unlikely compartment syndrome but will continue to measure bilateral calf size, and peripheral pulses are currently present. - Doppler of leg - continue abx coverage - closely check lower extremity peripheral pulses posterior tibial and dorsalis pedis (3) Community acquired pneumonia Current Visit: Yes Status: Acute Lab values currently not improving, clinically patient is clinically stable and reports no increase of symptoms from admission. - continue abx Qualifiers: Qualified Code(s): J18.9 - Pneumonia, unspecified organism (4) Lactic acidosis Current Visit: Yes Status: Acute Lactate downtrended to 4.3 today (5) Hypokalemia Current Visit: Yes Status: Acute K 3.4 today. - will continue to monitor (6) Hypomagnesemia Current Visit: Yes Status: Acute Mg 1.0 today - will continue to monitor (7) DVT prophylaxis Current Visit: Yes Status: Acute unable to restart heparin due to coagulopathy and bruising on right pretibial. Mechanical DVT prophylaxis is not an option due to location of bruising of right leg. INR 2.1. - will closely follow INR. will consider risks of DVT versus bleed. Subjective Principal diagnosis: Severe Sepsis Interval history: Ms Rivas is a 61 year old female ICU day 2 admit due to severe sepsis source currently thought to be PNA. Hx of chronic swelling since TIPS procedure for cirrhosis secondary to Hep C treated. Patient temperature went to 102 and responded to tylenol. Had an episode of tachy which she was given cardizem. No other events overnight. Patient has complaints of right stewart pain. Objective PUL Vital signs: Last Vital Signs Temp 97.6 F 12/06/16 04:00 Pulse 86 12/06/16 10:00 Resp 16 12/06/16 10:00 BP 93/57 12/06/16 10:00 Pulse Ox 92 12/06/16 10:00 General appearance: no acute distress, alert Eyes: nonicteric Effort: other (patient was seen while on bipap) Auscultation: bilateral: clear Percussion: bilateral: not dull (test was limited to upper lung sarkar due to patients mobility) Cardiovascular: regular rate and rhythm Gastrointestinal: normoactive bowel sounds, soft, non-tender Integumentary: normal Extremities: no cyanosis, no edema, other (right pretibial ecchymosis appearing , warm and tender to touch) Musculoskeletal: no deformities normal mental status, pupils equal and round mood appropriate Results - Laboratory Findings CBC and BMP: 12/06/16 03:35 12/06/16 14:05 ABG ABG pH 7.38 pH Units (7.32-7.45) 12/05/16 17:55 ABG pCO2 26 mmHg (35-45) L 12/05/16 17:55 ABG pO2 68 mmHg (85-104) L 12/05/16 17:55 ABG O2 Saturation 93 % (95-98) L 12/05/16 17:55 PT/INR, D-dimer PT 22.7 Seconds (9.4-12.1) H 12/05/16 14:25 Abnormal lab findings: Abnormal lab results WBC 25.1 K/mcL (4.3-11.1) H D 12/06/16 03:35 RBC 3.13 M/mcL (3.82-4.97) L 12/06/16 03:35 Hgb 10.9 g/dL (11.5-15.4) L 12/06/16 03:35 Hct 32.5 % (35.3-44.9) L 12/06/16 03:35 MCV 103.8 fL (83.0-100.0) H 12/06/16 03:35 MCH 34.8 pg (28.0-33.3) H 12/06/16 03:35 RDW 15.9 % (11.5-14.5) H 12/06/16 03:35 Plt Count 76 K/mcL (140-400) L 12/06/16 03:35 Band Neutrophils % 23.0 % (0-4) H 12/06/16 03:35 Metamyelocytes % 1.0 % (0) H 12/06/16 03:35 Neutrophils # 24.1 K/mcL (1.6-8.9) H 12/06/16 03:35 Lymphocytes # 0.3 K/mcL (0.6-4.6) L 12/06/16 03:35 Nucleated RBCs/100 WBC 0.5 /100 WBC (0) H 12/05/16 14:25 Platelet Estimate Decreased (Normal) L 12/06/16 03:35 Polychromasia 1+ (Not Present) A 12/06/16 03:35 Anisocytosis 1+ (Not Present) A 12/06/16 03:35 Macrocytosis Present (Not Present) A 12/06/16 03:35 PT 22.7 Seconds (9.4-12.1) H 12/05/16 14:25 APTT 47.6 Seconds (26.0-36.0) H 12/05/16 14:25 ABG pCO2 26 mmHg (35-45) L 12/05/16 17:55 ABG pO2 68 mmHg (85-104) L 12/05/16 17:55 ABG HCO3 15 mEq/L (21-27) L 12/05/16 17:55 ABG Total CO2 16 mEq/L (20-26) L 12/05/16 17:55 ABG O2 Saturation 93 % (95-98) L 12/05/16 17:55 ABG Base Excess -9 mEq/L (-2 to 3) L 12/05/16 17:55 Sodium 129 mEq/L (136-145) L 12/06/16 03:35 Potassium 3.4 mEq/L (3.5-4.5) L 12/06/16 03:35 Carbon Dioxide 15 mEq/L (19-29) L 12/06/16 03:35 Creatinine 1.58 mg/dL (0.57-1.11) H 12/06/16 03:35 Est GFR ( Amer) 40 (> 60) L 12/06/16 03:35 Est GFR (Non-Af Amer) 33 (> 60) L 12/06/16 03:35 Glucose 106 mg/dL (70-99) H 12/06/16 03:35 POC Glucose 92 (58-89) H 12/05/16 17:49 Calculated Osmolality 269 (280-300) L 12/06/16 03:35 Lactic Acid 4.3 mmol/L (0.5-2.2) H* 12/06/16 03:35 Calcium 7.2 mg/dL (8.6-10.8) L 12/06/16 03:35 Ionized Calcium 1.02 mmol/L (1.15-1.35) L 12/06/16 03:35 Magnesium 1.0 mg/dL (1.6-2.6) L 12/06/16 03:35 Total Bilirubin 5.1 mg/dL (0.2-1.2) H 12/05/16 14:25 Direct Bilirubin 2.1 mg/dL (0.0-0.5) H 12/05/16 14:25 Indirect Bilirubin 3.0 mg/dL (0.0-1.2) H 12/05/16 14:25 B-Natriuretic Peptide 117 pg/mL (0-100) H 12/05/16 14:25 Serum Total Protein 5.6 g/dL (6.0-8.3) L 12/05/16 14:25 Albumin 2.0 g/dL (3.5-5.0) L 12/05/16 14:25 Globulin 3.6 g/dL (2.4-3.5) H 12/05/16 14:25 Albumin/Globulin Ratio 0.6 (1.1-2.2) L 12/05/16 14:25 Ur Leukocyte Esterase Small (Negative) H 12/05/16 16:00 Urine Microscopic RBC 3-5 per hpf (0-3) H 12/05/16 16:00 Urine Microscopic WBC 15-30 per hpf (0-3) H 12/05/16 16:00 Ur Squamous Epith Cells Many per lpf (None-Few) H 12/05/16 16:00 Urine Bacteria Many per hpf (None-Few) H 12/05/16 16:00 Ur Culture Indicated? YES (NO) A 12/05/16 16:00 - Clinical Findings Intake & Output: Intake & Output 12/05/16 12/06/16 12/06/16 23:59 07:59 15:59 Intake Total 3730 / 3730 2422 / 2422 Output Total 50 / 50 Balance 3705 / 3705 2372 / 2372 Weight 88.1 kg
[2016-12-06] MEDS ORDERED: Vancomycin (wt based) 1,000 MG VIAL IV SCH (11:00)
[2016-12-06] MEDS: Ipratropium/Albuterol Neb 3 ML IH SCH ×3 (11:20→20:14)
[2016-12-06] MEDS: Nicotine 21 MG PATCH.TD24 TD SCH (11:45)
[2016-12-06] MEDS: ALPRAZolam 0.25 MG TABLET PO PRN (13:50)
[2016-12-06 14:29] LABS: Ionized Calcium 1.08 mmol/L (1.15-1.35)
[2016-12-06] MEDS ORDERED: Ondansetron 4 MG/2 ML VIAL IVP PRN (14:46)
[2016-12-06 15:30] LABS: Magnesium 1.5 mg/dL (1.6-2.6); Phosphorous 5.7 mg/dL (2.3-4.7); Potassium 3.8 mEq/L (3.5-4.5)
--- NOTE | 2016-12-06 16:30 | Procedure Note ---
<Reilly iBshop - Last Filed: 12/06/16 16:11> Date of procedure: 12/06/16 Pre-op diagnosis: pleural effusion Post-op diagnosis: same Procedure: A time-out was completed verifying correct patient, procedure, site, positioning , and special equipment if applicable. The patients right side was prepped and draped in a sterile manner after the appropriate infiltration level was confirmed by ultrasound. 1% lidocaine was used to anesthetize the surrounding skin. A finder needle was then used to locate fluid and serosanguinous fluid was obtained. A 10-blade scalpel used to make the incision. The thoracentesis catheter was then threaded without difficulty. The patient had ~900 ml of serosanguinus fluid removed. Drs. Rosales and Edna were present for the entire procedure. A post-procedure chest x-ray was ordered and showed pneumothorax with mediastinal shift so we proceeded to chest tube placement. Anesthesia: local Surgeon: Mercy Rosales [employer] Attendant: Reilly Bishop Estimated blood loss (cc): 1 IV fluids (cc): 0 Urine output (cc): 0 Pathology: other (Pleural fluid sent for pH, glucose, LDH, protein, cell count, and cytology.) Condition: critical Disposition: ICU <Mercy Rosales - Last Filed: 12/06/16 17:10> Procedure: I have personally was present during this procedure and with complication of pneumothorax that was treated. Patient tolerated procedure very well.
--- NOTE | 2016-12-06 16:41 | Electrocardiograph Report ---
[place] [id number] Test Date: 2016-12-05 Pat Name: Rachelle Rivas Department: 103 Room: 02 Gender: F Provider Network Analyst: EKP : [id number] Requested By: Adin Wong Order Number: [id number] Reading MD: Tiana López Measurements Intervals [place] Rate: 109 P: 58 CO: 145 QRS: 39 QRSD: 91 T: 39 QT: 349 QTc: 413 Interpretive Statements SINUS TACHYCARDIA INCOMPLETE RIGHT BUNDLE BRANCH BLOCK [90+ ms QRS DURATION, TERMINAL R IN V1/V2, 40+ ms S IN I/aVL/V4/V5/V6] SEPTAL MYOCARDIAL INFARCTION [40+ ms Q WAVE IN V1/V2], PROBABLY OLD Electronically Signed On 12-06-2016 16:39:10 EDT by Tiana López
[2016-12-06 17:13] LABS: RBC,Pleural Fluid 0.021 M/mcL
--- NOTE | 2016-12-06 17:13 | Procedure Note ---
Date of procedure: 12/06/16 Pre-op diagnosis: Pneumothorax Post-op diagnosis: same Procedure: Indication: Pneumothorax postthoracentesis. Procedure: Small chest tube placement. After obtaining the consent from patient and also the family, the right side of the chest was clean, draped and prepped in the usual fashion and with 1% lidocaine area was locally anesthetized, then with the catheter air was aspirated and small bore catheter was placed in the intercostal space in the mid clavicle line then was connected with the chest tube chamber with air evacuated and subsequently chest x-ray showed significant improvement in the pneumothorax. She did not tolerate the procedure well without immediate complications. Anesthesia: local Surgeon: Mercy Rosales Disposition: ICU
[2016-12-06 17:14] LABS: Appearance of Pleural Fl Cloudy (Clear)
[2016-12-06 17:17] LABS: Glucose,Pleural Fluid 96 mg/dL (No Ref Range); LDH,Pleural Fluid 111 Units/L (No Ref Range)
[2016-12-06 17:23] LABS: Total Protein,Pleural Fluid 2.4 g/dL (No Ref Range)
[2016-12-06] MEDS: Vancomycin 1,000 MG in D5% in Water 250 ML IVPB SCH (18:11)
[2016-12-07] MEDS: Hydrocortisone Sodium Succ 100 MG/2 ML VIAL IVP SCH ×2 (00:04→05:20)
[2016-12-07] MEDS: Ipratropium/Albuterol Neb 3 ML IH SCH ×5 (00:09→15:38)
[2016-12-07 00:28] LABS: Ionized Calcium 1.09 mmol/L (1.15-1.35)
[2016-12-07] MEDS: ALPRAZolam 0.25 MG TABLET PO PRN (00:29)
[2016-12-07] MEDS: *HR* Morphine 2 MG/ML SYRINGE IVP PRN (00:30)
[2016-12-07 00:33] LABS: Phosphorous 6.4 mg/dL (2.3-4.7); Potassium 4.7 mEq/L (3.5-4.5)
[2016-12-07 01:04] LABS: Magnesium 2.2 mg/dL (1.6-2.6)
[2016-12-07] MEDS: Norepinephrine 4 MG in D5% in Water 250 ML IVC SCH ×3 (02:11→13:04)
[2016-12-07 04:11] LABS: Red Cell Distribution Width 15.5 % (11.5-14.5)
[2016-12-07 04:13] LABS: Hematocrit 34.8 % (35.3-44.9); Hemoglobin 11.4 g/dL (11.5-15.4); Mean Corpuscular HGB Conc 32.8 g/dL (31.6-35.5); Mean Corpuscular Hemoglobin 34.3 pg (28.0-33.3); Mean Corpuscular Volume 104.8 fL (83.0-100.0); Mean Platelet Volume 9.2 fL (9.4-12.4); Red Blood Count 3.32 M/mcL (3.82-4.97)
[2016-12-07 04:15] LABS: INR 3.1; Prothrombin Time 33.7 Seconds (9.4-12.1)
[2016-12-07 04:23] LABS: Platelet Count 71 K/mcL (140-400)
[2016-12-07 04:32] LABS: Calcium 7.6 mg/dL (8.6-10.8); Potassium 4.3 mEq/L (3.5-4.5)
[2016-12-07 05:04] LABS: Magnesium 2.2 mg/dL (1.6-2.6); Phosphorous 6.8 mg/dL (2.3-4.7)
[2016-12-07] MEDS: Piperacillin/Tazobactam 3.375 GM in D5% in Water (Mini-Bag+) 100 ML IVPB SCH ×2 (05:20→13:05)
[2016-12-07] MEDS ORDERED: Albumin Human 5% 37.5 GM/750 ML VIAL IVPB STA (05:37)
[2016-12-07] MEDS: *HR* OxyCODONE Immed Rel 5 MG TABLET PO PRN (05:59)
[2016-12-07] MEDS: Nicotine 21 MG PATCH.TD24 TD SCH (07:10)
[2016-12-07] MEDS ORDERED: *HR* LORazepam 0.5 MG TABLET PO PRN (08:03)
[2016-12-07] MEDS: 0.9 % Sodium Chloride 1,000 ML IVC SCH ×2 (08:35→14:49)
--- NOTE | 2016-12-07 08:59 | Pulmonology Progress Note ---
<Arie Gardner - Last Filed: 12/07/16 08:57> Date of Encounter: 12/07/16 Time of Encounter: 08:57 Assessment and Plan (1) Severe sepsis Status: Acute Source currently thought to be from PNA, but will also consider cellulitis as source. Low risk for MRSA due to no history of hospitalization or exposure. Cat bite source of cellulitis in right leg consider Capnocotyophaga (high cause of sepsis and bacteremia in hepatic disease) or Pasturella - WBC 38.6 this AM, Do not give hydrocortisone - Lactate 4.3 today - CT abd/pelvis - Large chronic right pleural effusion with right middle lobe and right lower lobe opacities. - MAP 65 this AM. D/C levophed and started Midrodrine - abx: day 3 zosyn + day 3 levaquin + day 2 vanco - Urine Cx - +e.coli cano sensitive - cano cx from Ed - pending (2) Right leg pain Status: Acute most likely cellulitis vs less likely DVT vs less likely compartment syndrome. Patient reports starting on 12/06/16 her right "stewart" is in pain. Overnight nurse did not report warmth, but today when evaluated, right pretibial was warm and tender to light touch. Patient INR is 2.1, and cannot be put on heparin due to coagulopathy and bruising. And mechanical DVT prophylaxis would be in contact with current site of complaint. Patient has a history of cellulitis. She's been bed bound for 48 hours, and her last surgery was in August, more than 4 weeks ago. is a current smoker. unlikely compartment syndrome but will continue to measure bilateral calf size, and peripheral pulses are currently present. - Doppler of leg - negative - continue abx coverage - closely check lower extremity peripheral pulses posterior tibial and dorsalis pedis (3) Community acquired pneumonia Status: Acute Lab values currently not improving, clinically patient is clinically stable and reports no increase of symptoms from admission. - continue abx Qualifiers: Qualified Code(s): J18.9 - Pneumonia, unspecified organism (4) Lactic acidosis Status: Acute Lactate downtrended to 4.3 today (5) Hypokalemia Status: Acute K 3.4 today. - will continue to monitor (6) Hypomagnesemia Status: Acute Mg 1.0 today - will continue to monitor (7) DVT prophylaxis Status: Acute unable to restart heparin due to coagulopathy and bruising on right pretibial. Mechanical DVT prophylaxis is not an option due to location of bruising of right leg. INR 2.1. - will closely follow INR. will consider risks of DVT versus bleed. (8) Anxiety Status: Acute Patient exhibits continued anxiety. - home Rx of ativan was restarted (9) Tension pneumothorax Status: Acute patient developed tension pneumothorax yesterday. chest tube was placed, and confirmed by cxr Subjective Principal diagnosis: Severe Sepsis Interval history: Ms Rivas is a 61 year old female ICU day 3 admit due to severe sepsis source currently thought to be PNA, possible right leg cellultis. Hx of chronic swelling since TIPS procedure for cirrhosis secondary to Hep C treated. Last night a chest tube was placed due to tension pneumothorax. Patient had no events overnight and slept through the night. Upon further history, patient admits to right leg wound is where her cat bite her. Objective PUL Vital signs: Last Vital Signs Temp 96.2 F L 12/07/16 07:54 Pulse 92 12/07/16 08:00 Resp 14 12/07/16 08:33 BP 96/50 12/07/16 08:00 Pulse Ox 94 12/07/16 08:33 General appearance: no acute distress Eyes: nonicteric ENT: other (nose is blue appearing) Effort: normal Auscultation: bilateral: wheezes (expiratory wheezes her bilaterally, more prominent on right) Cardiovascular: regular rate and rhythm Gastrointestinal: hypoactive bowel sounds, non-tender, non-distended Integumentary: cellulitis (right pretibial is not warm but remains sensitive to light touch) Extremities: no edema, pulses normal (bilaterally equal radial, posterior tibial and dorsalis pedis pulses), other ( 1-2 seconds capillary refill bilaterally 2nd finger) normal mental status, pupils equal and round mood appropriate, affect normal Results - Laboratory Findings CBC and BMP: 12/07/16 04:02 12/07/16 04:02 ABG ABG pH 7.38 pH Units (7.32-7.45) 12/05/16 17:55 ABG pCO2 26 mmHg (35-45) L 12/05/16 17:55 ABG pO2 68 mmHg (85-104) L 12/05/16 17:55 ABG O2 Saturation 93 % (95-98) L 12/05/16 17:55 PT/INR, D-dimer PT 33.7 Seconds (9.4-12.1) H 12/07/16 04:02 Abnormal lab findings: Abnormal lab results WBC 38.6 K/mcL (4.3-11.1) H* D 12/07/16 04:02 RBC 3.32 M/mcL (3.82-4.97) L 12/07/16 04:02 Hgb 11.4 g/dL (11.5-15.4) L 12/07/16 04:02 Hct 34.8 % (35.3-44.9) L 12/07/16 04:02 MCV 104.8 fL (83.0-100.0) H 12/07/16 04:02 MCH 34.3 pg (28.0-33.3) H 12/07/16 04:02 RDW 15.5 % (11.5-14.5) H 12/07/16 04:02 Plt Count 71 K/mcL (140-400) L 12/07/16 04:02 MPV 9.2 fL (9.4-12.4) L 12/07/16 04:02 Band Neutrophils % 23.0 % (0-4) H 12/06/16 03:35 Metamyelocytes % 1.0 % (0) H 12/06/16 03:35 Neutrophils # 24.1 K/mcL (1.6-8.9) H 12/06/16 03:35 Lymphocytes # 0.3 K/mcL (0.6-4.6) L 12/06/16 03:35 Nucleated RBCs/100 WBC 0.5 /100 WBC (0) H 12/05/16 14:25 Platelet Estimate Decreased (Normal) L 12/06/16 03:35 Polychromasia 1+ (Not Present) A 12/06/16 03:35 Anisocytosis 1+ (Not Present) A 12/06/16 03:35 Macrocytosis Present (Not Present) A 12/06/16 03:35 PT 33.7 Seconds (9.4-12.1) H 12/07/16 04:02 APTT 47.6 Seconds (26.0-36.0) H 12/05/16 14:25 ABG pCO2 26 mmHg (35-45) L 12/05/16 17:55 ABG pO2 68 mmHg (85-104) L 12/05/16 17:55 ABG HCO3 15 mEq/L (21-27) L 12/05/16 17:55 ABG Total CO2 16 mEq/L (20-26) L 12/05/16 17:55 ABG O2 Saturation 93 % (95-98) L 12/05/16 17:55 ABG Base Excess -9 mEq/L (-2 to 3) L 12/05/16 17:55 Sodium 125 mEq/L (136-145) L 12/07/16 04:02 Carbon Dioxide 12 mEq/L (19-29) L 12/07/16 04:02 BUN 22 mg/dL (7-20) H 12/07/16 04:02 Creatinine 2.06 mg/dL (0.57-1.11) H 12/07/16 04:02 Est GFR ( Amer) 30 (> 60) L 12/07/16 04:02 Est GFR (Non-Af Amer) 24 (> 60) L 12/07/16 04:02 Glucose 103 mg/dL (70-99) H 12/07/16 04:02 POC Glucose 92 (58-89) H 12/05/16 17:49 Calculated Osmolality 264 (280-300) L 12/07/16 04:02 Lactic Acid 4.3 mmol/L (0.5-2.2) H* 12/06/16 03:35 Calcium 7.6 mg/dL (8.6-10.8) L 12/07/16 04:02 Ionized Calcium 1.09 mmol/L (1.15-1.35) L 12/07/16 00:10 Phosphorus 6.8 mg/dL (2.3-4.7) H 12/07/16 04:02 Total Bilirubin 5.1 mg/dL (0.2-1.2) H 12/05/16 14:25 Direct Bilirubin 2.1 mg/dL (0.0-0.5) H 12/05/16 14:25 Indirect Bilirubin 3.0 mg/dL (0.0-1.2) H 12/05/16 14:25 B-Natriuretic Peptide 117 pg/mL (0-100) H 12/05/16 14:25 Serum Total Protein 5.6 g/dL (6.0-8.3) L 12/05/16 14:25 Albumin 2.0 g/dL (3.5-5.0) L 12/05/16 14:25 Globulin 3.6 g/dL (2.4-3.5) H 12/05/16 14:25 Albumin/Globulin Ratio 0.6 (1.1-2.2) L 12/05/16 14:25 Ur Leukocyte Esterase Small (Negative) H 12/05/16 16:00 Urine Microscopic RBC 3-5 per hpf (0-3) H 12/05/16 16:00 Urine Microscopic WBC 15-30 per hpf (0-3) H 12/05/16 16:00 Ur Squamous Epith Cells Many per lpf (None-Few) H 12/05/16 16:00 Urine Bacteria Many per hpf (None-Few) H 12/05/16 16:00 Ur Culture Indicated? YES (NO) A 12/05/16 16:00 Pleural Appearance Cloudy (Clear) A 12/06/16 15:33 Pleural RBC 0.021 M/mcL (0.000-0.002) H 12/06/16 15:33 Pleural Tot Nuc Cell 1822 TNC/mcL (0-1000) H 12/06/16 15:33 - Microbiology Findings Microbiology Findings: Microbiology, Last 48 Hours 12/05/16 16:00 Urine Culture - Final Urine,Clean Catch Escherichia coli 12/06/16 15:33 Body Fluid Culture - Preliminary Pleural Fluid - Clinical Findings Intake & Output: Intake & Output 12/06/16 12/07/16 12/07/16 23:59 07:59 15:59 Intake Total 1272 / 1272 1804 / 1804 102 / 102 Output Total 400 / 400 320 / 320 Balance 872 / 872 1484 / 1484 102 / 102 Weight 94.2 kg Consult Discharge Plan - Plan Additional Instructions: Transfer to [facility] ICU. Accepting physician is Dr. gaines. Referrals: Ina Nielsen DO [Primary Care Provider] - <Mercy Rosales - Last Filed: 12/07/16 22:44> Date of Encounter: 12/07/16 Objective PUL Vital signs: Last Vital Signs Temp 96.0 F L 12/07/16 12:03 Pulse 93 12/07/16 13:00 Resp 14 12/07/16 13:00 BP 89/41 12/07/16 13:00 Pulse Ox 93 12/07/16 13:00 Results - Laboratory Findings CBC and BMP: 12/07/16 04:02 12/07/16 04:02 ABG ABG pH 7.38 pH Units (7.32-7.45) 12/05/16 17:55 ABG pCO2 26 mmHg (35-45) L 12/05/16 17:55 ABG pO2 68 mmHg (85-104) L 12/05/16 17:55 ABG O2 Saturation 93 % (95-98) L 12/05/16 17:55 PT/INR, D-dimer PT 33.7 Seconds (9.4-12.1) H 12/07/16 04:02 Abnormal lab findings: Abnormal lab results WBC 38.6 K/mcL (4.3-11.1) H* D 12/07/16 04:02 RBC 3.32 M/mcL (3.82-4.97) L 12/07/16 04:02 Hgb 11.4 g/dL (11.5-15.4) L 12/07/16 04:02 Hct 34.8 % (35.3-44.9) L 12/07/16 04:02 MCV 104.8 fL (83.0-100.0) H 12/07/16 04:02 MCH 34.3 pg (28.0-33.3) H 12/07/16 04:02 RDW 15.5 % (11.5-14.5) H 12/07/16 04:02 Plt Count 71 K/mcL (140-400) L 12/07/16 04:02 MPV 9.2 fL (9.4-12.4) L 12/07/16 04:02 Band Neutrophils % 23.0 % (0-4) H 12/06/16 03:35 Metamyelocytes % 1.0 % (0) H 12/06/16 03:35 Neutrophils # 24.1 K/mcL (1.6-8.9) H 12/06/16 03:35 Lymphocytes # 0.3 K/mcL (0.6-4.6) L 12/06/16 03:35 Nucleated RBCs/100 WBC 0.5 /100 WBC (0) H 12/05/16 14:25 Platelet Estimate Decreased (Normal) L 12/06/16 03:35 Polychromasia 1+ (Not Present) A 12/06/16 03:35 Anisocytosis 1+ (Not Present) A 12/06/16 03:35 Macrocytosis Present (Not Present) A 12/06/16 03:35 PT 33.7 Seconds (9.4-12.1) H 12/07/16 04:02 APTT 47.6 Seconds (26.0-36.0) H 12/05/16 14:25 ABG pCO2 26 mmHg (35-45) L 12/05/16 17:55 ABG pO2 68 mmHg (85-104) L 12/05/16 17:55 ABG HCO3 15 mEq/L (21-27) L 12/05/16 17:55 ABG Total CO2 16 mEq/L (20-26) L 12/05/16 17:55 ABG O2 Saturation 93 % (95-98) L 12/05/16 17:55 ABG Base Excess -9 mEq/L (-2 to 3) L 12/05/16 17:55 Sodium 125 mEq/L (136-145) L 12/07/16 04:02 Carbon Dioxide 12 mEq/L (19-29) L 12/07/16 04:02 BUN 22 mg/dL (7-20) H 12/07/16 04:02 Creatinine 2.06 mg/dL (0.57-1.11) H 12/07/16 04:02 Est GFR ( Amer) 30 (> 60) L 12/07/16 04:02 Est GFR (Non-Af Amer) 24 (> 60) L 12/07/16 04:02 Glucose 103 mg/dL (70-99) H 12/07/16 04:02 POC Glucose 92 (58-89) H 12/05/16 17:49 Calculated Osmolality 264 (280-300) L 12/07/16 04:02 Lactic Acid 7.7 mmol/L (0.5-2.2) H* 12/07/16 09:15 Calcium 7.6 mg/dL (8.6-10.8) L 12/07/16 04:02 Ionized Calcium 1.09 mmol/L (1.15-1.35) L 12/07/16 00:10 Phosphorus 6.8 mg/dL (2.3-4.7) H 12/07/16 04:02 Total Bilirubin 5.1 mg/dL (0.2-1.2) H 12/05/16 14:25 Direct Bilirubin 2.1 mg/dL (0.0-0.5) H 12/05/16 14:25 Indirect Bilirubin 3.0 mg/dL (0.0-1.2) H 12/05/16 14:25 B-Natriuretic Peptide 117 pg/mL (0-100) H 12/05/16 14:25 Serum Total Protein 5.6 g/dL (6.0-8.3) L 12/05/16 14:25 Albumin 2.0 g/dL (3.5-5.0) L 12/05/16 14:25 Globulin 3.6 g/dL (2.4-3.5) H 12/05/16 14:25 Albumin/Globulin Ratio 0.6 (1.1-2.2) L 12/05/16 14:25 Ur Leukocyte Esterase Small (Negative) H 12/05/16 16:00 Urine Microscopic RBC 3-5 per hpf (0-3) H 12/05/16 16:00 Urine Microscopic WBC 15-30 per hpf (0-3) H 12/05/16 16:00 Ur Squamous Epith Cells Many per lpf (None-Few) H 12/05/16 16:00 Urine Bacteria Many per hpf (None-Few) H 12/05/16 16:00 Ur Culture Indicated? YES (NO) A 12/05/16 16:00 Pleural Appearance Cloudy (Clear) A 12/06/16 15:33 Pleural RBC 0.021 M/mcL (0.000-0.002) H 12/06/16 15:33 Pleural Tot Nuc Cell 1822 TNC/mcL (0-1000) H 12/06/16 15:33 - Microbiology Findings Microbiology Findings: Microbiology, Last 48 Hours 12/05/16 16:00 Urine Culture - Final Urine,Clean Catch Escherichia coli 12/06/16 15:33 Body Fluid Culture - Preliminary Pleural Fluid - Clinical Findings Intake & Output: Intake & Output 12/06/16 12/07/16 12/07/16 23:59 07:59 15:59 Intake Total 1272 / 1272 1804 / 1804 767 / 767 Output Total 400 / 400 320 / 320 50 / 50 Balance 872 / 872 1484 / 1484 717 / 717 Weight 94.2 kg - Attending Attestation I examined this patient and my medical decision-making was reviewed with the Resident Physician. I agree with the documented findings, disposition and treatment plan as described except to the extent set forth below. Patient seen and examined. Labs, radiology, chart personally reviewed. Agree with resident's history and physical, assessment, plan with following comments: CARPET WINDER: Patient follows commands, Pulmonary: Acceptable oxygenation and ventilation. Patient with chest tube underwater seal and follow-up chest x-ray reviewed which remained stable and possible removal of chest tube in next 24 hours especially with the volume status which is mainly extravascular.. Cardiovascular: Patient remained in shock and continue Levophed. I have added Medodrine to the treatment and also more volume resuscitation with albumin. Patient has some improvement clinically. GI: Nutrition per dietary and GI prophylaxis per routine. I am really concerned about her liver disease and has evidence of liver failure and discussed with infectious disease and agree with the management plan. I also discussed with precipitation equipment tender for an evaluation. I have explained to the and the mother that she has high mortality rate and we will contact her bessemer bottom maker at to ICU. I will decide about transferring care to resume after evaluation by a precipitation equipment tender. Heme: DVT prophylaxis per routine. Remain coagulopathic which I feel this is from her underlying liver disease. ID: Continue antibiotics and plan to de-escalation. Septic shock and I will consult infectious disease for assistance. Lactic acidosis is worsening and may need to change antibiotics. Renal; urine out put and renal funtion reviewed. Worsening of renal function with acute kidney injury is multifactorial especially with shock. Endorcine: blood glucose is monitored Lines: all lines checked and no evidence of infections Skin: skin care to prevent pressure ulcers per nursing routine care We will continue monitoring in intensive care unit I had multiple discussion with the family regarding the prognosis and they requested patient to be transferred to [facility] because they know her very well and her bessemer bottom maker is at [facility] and discussed with our precipitation equipment tender and they agreed with transferring the patient to [facility]. I spent 45 min of Critical Care time with this patient. It involved decision making of high complexity to assess, manipulate, and support vital organ system failure and/or to prevent further life threatening deterioration of the patient' s condition. The time involved in the performance of separately reportable procedures was not counted toward critical care time.
--- NOTE | 2016-12-07 12:11 | Venous Imaging Report ---
LE Venous Duplex Patient Name:Rachelle Rivas Order Number:[id number] Procedure Date:12/06/2016 Date:6Age:61 yrs Gender:Female Location:[facility] Room #: IC02 [employer] Leader:Emily Zapata, VINNY, RVT Referring MD:Mercy Rosales MD Reading MD:Mike Peña MD Primary Indications:Right leg pretibial pain Secondary Indications: Impressions: Normal right lower extremity deep and superficial venous exam. Normal contralateral common femoral vein. Findings Venous Duplex Results: Right: Venous imaging of the lower extremity reveals full patency and normal vessel compressibility of the right distal iliac, right common femoral, right superficial femoral, right popliteal, right posterior tibial, right peroneal, right great saphenous and right lesser saphenous. Doppler signals in the evaluated veins were normal. Prior Study: No prior study available for comparison. Lower Extremity Venous Duplex Side Vein Compress Spontaneous Flow Augment Diameter (cm) Depth (cm) Right Distal Iliac Normal Yes Phasic Yes Right Common Femoral Normal Yes Phasic Yes Right Superficial Femoral Normal Yes Phasic Yes Right Popliteal Normal Yes Phasic Yes Right Posterior Tibial Normal Yes Phasic Yes Right Peroneal Normal Yes Phasic Yes Right Great Saphenous Normal Yes Phasic Yes Right Lesser Saphenous Normal Yes Phasic Yes Updated by Mike Peña MD on 12/07/2016 12:07:14 PM electronically signed on 12/07/2016 12:07:29 PM with status of Final
--- NOTE | 2016-12-07 12:58 | Infectious Disease Consult ---
Date of Encounter: 12/07/16 Time of Encounter: 12:57 Assessment and Plan (1) Septic shock Status: Acute Assessment and plan: patient requiring pressors etiology not clear, possibly due to pneumonia vs SBP patient already on broad spectrum antibiotics cultures pending (2) Rebound abdominal tenderness Status: Acute Assessment and plan: ascitis noted on CT abdomen physical exam noting some mild rebound SBP on differential already on vanc and zosyn fluid too small to get a paracentesis (3) Alcoholic cirrhosis of liver with ascites Status: Acute Assessment and plan: secondary to hepatitis c MELD score of 35 prognosis very poor less than 50 percent survival 3 months (4) S/P TIPS (transjugular intrahepatic portosystemic shunt) Status: Acute Assessment and plan: no signs of infection no meningitis signs (5) Lactic acidosis Status: Acute Assessment and plan: likely due to hypoperfusion and ESLD (6) DELMI (acute kidney injury) Status: Acute (7) Tension pneumothorax Status: Acute (8) Cirrhosis Status: Acute Assessment and plan: MELD [address] Alonzo recommend transfering to [facility] for hepatology eval Qualifiers: Hepatic cirrhosis type: unspecified hepatic cirrhosis Ascites presence: with ascites Qualified Code(s): K74.60 - Unspecified cirrhosis of liver Infectious Disease HPI - Data of Consult Consult date: 12/07/16 Requesting Physician: Mercy Rosales MD Primary Care Provider: Ina Nielsen DO - Consult Narrative Reason for consult: severe sepsis History of present illness: Ms. Rivas is a 61 year old female Patient is 61-year-old woman who was admitted to [facility] on 12/05/2016 with fever, nausea vomiting and back pain. We are consulted on 12/07/16 for severe sepsis and lactic acidosis. patient is a 61 year old woman with past medical history mentioned below including ESLD status post TIPS at [facility] a few years back, recent fall in august with hip fracture came into [facility] for getting worse progressively, with weakness , fatigue, AMS. most of the info was obtained from medical records and family ( wasn't available). patient apparently also had a recent cat bite on the right lower extremity. Since admission, patients temperature has been 102.3 and has since then improved. Patient was also tachycardic with a heart rate of 120, hypotension with blood pressure of 80/41 and leukopenia with WC of 3.8 with neutrophilic predominance that has increased to 38.6 with bandemia. Patient also has coagulopathy with a PT of 33.7 INR of 3.1 and a PTT of 47.6. Patient also was in acute kidney injury with a creatinine that increased from 1.13-2.06. Lactic acid has been significantly high at 7.5 on admission and continues to be high at 7.7 today. Patients total bilirubin is elevated at 5.1 with indirect bilirubin 3 and direct 2.1. AST and ALT and alkaline phosphatase appear to be normal. A UA revealed a contaminated specimen with many epithelial cells and small leukocyte esterase negative nitrite and negative ketones. A CT chest was done on 12/06/16 which revealed large chronic right pleural effusion with right middle lobe and right lower lobe opacities. Radiology read the findings are favored to represent atelectasis although superimposed pneumonia would be difficult to entirely exclude. Patient also apparently has cirrhosis of the liver with TIPSS shunt in place. She also has a small volume of ascites. Patient also had a lower extremity venous Doppler which showed normal right lower extremity deep and superficial venous exam. her physicial exam is remarkable for AMS and lethargy. conjunctiva is not jaundice (even though bili is 5). no oral thrush, air sounds audible both lung sarkar with chest expanding symmetrically. chest tube right chest. some abdominal tenderness with some rebound, no shifting dullness or obvious ascitis on physical exam. lower ext with diffuse edema and some venous stasis right lower ext. a scar from previous cat bite with no obvious cellulitis CC: Mercy Rosales MD Past Med Surg Social Fam HX - Past Medical History Medical history: cirrhosis, hepatitis, hyperlipidemia, hypertension, liver disease Psychiatric history: anxiety, depression - Past Surgical History Surgical History: cholecystectomy, JUVENAL/BSO - Social History Smoking Status: Current every day smoker Smokeless Tobacco Status: No Alcohol use: none Drug use: marijuana - Family History Mother History Unknown: Yes Father Living Status: Cause of : aneurysm Sister Living Status: Age at : 55 Cause of : lung cancer Infectious Disease-CN:Meds Furosemide [Lasix] 60 mg PO BID 09/20/16 [History] Pravastatin Sodium [Pravachol] 20 mg PO HS 09/20/16 [History] Spironolactone [Aldactone] 100 mg PO DAILY 09/20/16 [History] Venlafaxine XR (24 HR) [Effexor XR] 37.5 mg PO Q48H 09/20/16 [History] Albuterol Sulfate [Albuterol Inhaler] 2 puff IH Q4H PRN 12/05/16 [History] Ammonium Lactate [Katia-Hydrolac] 1 appl TP BID PRN 12/05/16 [History] Buspirone HCl [Buspar] 5 mg PO BID 12/05/16 [History] Fluticasone Propionate Nasal [Flonase] 50 - 100 mcg NS DAILY PRN 12/05/16 [ History] Lactulose 20 gm PO QID 12/05/16 [History] Omeprazole [PriLOSEC] 40 mg PO QAM 12/05/16 [History] Ondansetron HCl [Zofran] 4 mg PO Q8H PRN 12/05/16 [History] Ranitidine HCl [Zantac] 150 mg PO HS 12/05/16 [History] Rifaximin [Xifaxan] 550 mg PO BID 12/05/16 [History] hydrOXYzine HCl [Hydroxyzine HCl] 25 mg PO TID PRN 12/05/16 [History] 3 Allergy/AdvReac Type Severity Reaction Status Date / Time egg Allergy Vomiting Verified 12/05/16 14:25 lactose AdvReac Gastrointestinal Verified 12/05/16 14:25 Upset milk AdvReac Gastrointestinal Verified 12/05/16 14:25 Upset Sulfa (Sulfonamide AdvReac Gastrointestinal Verified 12/05/16 14:25 Antibiotics) Upset Tetracycline AdvReac Hives Verified 12/05/16 14:25 vitamin E (d-alpha AdvReac Hives Verified 12/05/16 14:25 tocopherol) [vitamin E] vitamin d 3 Allergy Rash Uncoded 07/02/16 19:05 vitamin B-12 AdvReac Hives Uncoded 07/02/16 19:05 Review of systems: 10 point ros done, negative other for what's mentioned in the HPI Exam - Constitutional Vitals: Temp Pulse Resp BP Pulse Ox 96.0 F L 96 14 101/54 93 12/07/16 12:03 12/07/16 12:00 12/07/16 12:00 12/07/16 12:00 12/07/16 12:00 General appearance: mild distress Exam: lethargic, arousable, on pressors (norepinephrone) - Head Head exam: Present: atraumatic, normocephalic - Eye Eye exam: Present: EOMI, PERRL, scleral icterus - ENT ENT exam: Present: mucous membranes dry Additional comments: no oral lesions - Neck Neck exam: Present: full ROM. Absent: meningismus - Respiratory Respiratory exam: Present: rhonchi Additional comments: chest expanding symmetrically, some ronchi. chest tube right chest intact. subclavian central line right chest - Cardiovascular Cardiovascular exam: Present: RRR, +S1, +S2 - GI/Abdominal GI/Abdominal exam: Present: hypoactive bowel sounds, soft, tenderness Additional comments: tender all 4 quadrants with some rebound - Extremities Exam Additional comments: some diffuse edema. venous stasis. no obvious cellulitis - Neurological Exam Neurological exam: Present: alert Additional comments: oriented x 2. lethargic. opens eyes spontaneously answers simple questions and follows command - Skin Skin exam: Absent: rash Infectious Disease CN: Results - Labs CBC & Chem 7: 12/07/16 04:02 12/07/16 04:02 Cultures: Cultures 12/05/16 16:00 Urine Culture - Final Urine,Clean Catch Escherichia coli 12/06/16 15:33 Body Fluid Culture - Preliminary Pleural Fluid Serology: Serology 12/06/16 12/05/16 Range/Units 15:33 16:00 Urine Color Yellow (Yellow) Urine Clarity Slightly Hazy (Clear) Urine pH 6.5 (5.0-8.0) pH Units Ur Specific [place] 1.014 (1.010-1.025) Urine Protein Negative (Neg-Trace) mg/dL Urine Glucose (UA) Normal (Normal) mg/dL Urine Ketones Negative (Negative) mg/dL Urine Blood Negative (Negative) Urine Nitrite Negative (Negative) Urine Bilirubin Negative (Negative) Urine Urobilinogen Normal (Normal) mg/dL Ur Leukocyte Esterase Small H (Negative) Urine Microscopic RBC 3-5 H (0-3) per hpf Urine Microscopic WBC 15-30 H (0-3) per hpf Ur Squamous Epith Cells Many H (None-Few) per lpf Urine Bacteria Many H (None-Few) per hpf Hyaline Casts None Seen (None-Few) per lpf Ur Culture Indicated? YES A (NO) Pleural Fluid Volume 1000.0 mL Pleural Appearance Cloudy A (Clear) Pleural pH 7.36 (No Ref Range) pH Units Pleural RBC 0.021 H (0.000 - 0.002) M/mcL Pleural Tot Nuc Cell 1822 H (0-1000) TNC/mcL Pleural Neutrophils 81.0 % Pleural Band Neuts 3.0 % Pleural Eosinophils Test Not Performed Pleural Basophils Test Not Performed Pleural Lymphocytes % 11.0 % Pleural Monocytes % 5.0 % Pleural Other Cells % Test Not Performed Pleural Total Protein 2.4 (No Ref Range) g/dL Pleural LDH 111 (No Ref Range) Units/L Pleural Glucose 96 (No Ref Range) mg/dL Consult Discharge Plan - Plan Additional Instructions: Transfer [facility] ICU. Accepting physician is Dr. gaines. Referrals: Ina Nielsen DO [Primary Care Provider] -
[2016-12-07] MEDS: Vancomycin 1,000 MG in D5% in Water 250 ML IVPB SCH (14:05)
[2016-12-07] MEDS ORDERED: VANCOMYCIN IVPB PRN (14:20)
[2016-12-07] MEDS ORDERED: WATER IVPB PRN (14:20)
[2016-12-07] MEDS ORDERED: D5 IVPB PRN (14:20)
[2016-12-07 18:03] VITALS: BP 93/45
--- NOTE | 2016-12-07 18:08 | Discharge Summary ---
<Arben García - Last Filed: 12/07/16 18:49> Date of Encounter: 12/07/16 Time of Encounter: 18:05 - Discharge Diagnosis (1) Severe sepsis Status: Acute (2) Pneumonia Status: Acute Qualifiers: Pneumonia type: due to unspecified organism Laterality: right Lung location: unspecified part of lung Qualified Code(s): J18.9 - Pneumonia, unspecified organism (3) Lactic acidosis Status: Acute (4) Cirrhosis Status: Acute (5) Right leg pain Status: Acute - Discharge Medications Home Medications: Furosemide [Lasix] 60 mg PO BID 09/20/16 [History] Pravastatin Sodium [Pravachol] 20 mg PO HS 09/20/16 [History] Spironolactone [Aldactone] 100 mg PO DAILY 09/20/16 [History] Venlafaxine XR (24 HR) [Effexor XR] 37.5 mg PO Q48H 09/20/16 [History] Albuterol Sulfate [Albuterol Inhaler] 2 puff IH Q4H PRN 12/05/16 [History] Ammonium Lactate [Katia-Hydrolac] 1 appl TP BID PRN 12/05/16 [History] Buspirone HCl [Buspar] 5 mg PO BID 12/05/16 [History] Fluticasone Propionate Nasal [Flonase] 50 - 100 mcg NS DAILY PRN 12/05/16 [ History] Lactulose 20 gm PO QID 12/05/16 [History] Omeprazole [PriLOSEC] 40 mg PO QAM 12/05/16 [History] Ondansetron HCl [Zofran] 4 mg PO Q8H PRN 12/05/16 [History] Ranitidine HCl [Zantac] 150 mg PO HS 12/05/16 [History] Rifaximin [Xifaxan] 550 mg PO BID 12/05/16 [History] hydrOXYzine HCl [Hydroxyzine HCl] 25 mg PO TID PRN 12/05/16 [History] Allergies/Adverse Reactions: 3 Allergy/AdvReac Type Severity Reaction Status Date / Time egg Allergy Vomiting Verified 12/05/16 14:25 lactose AdvReac Gastrointestinal Verified 12/05/16 14:25 Upset milk AdvReac Gastrointestinal Verified 12/05/16 14:25 Upset Sulfa (Sulfonamide AdvReac Gastrointestinal Verified 12/05/16 14:25 Antibiotics) Upset Tetracycline AdvReac Hives Verified 12/05/16 14:25 vitamin E (d-alpha AdvReac Hives Verified 12/05/16 14:25 tocopherol) [vitamin E] vitamin d 3 Allergy Rash Uncoded 07/02/16 19:05 vitamin B-12 AdvReac Hives Uncoded 07/02/16 19:05 Labs on day of discharge: Labs from last 24 hours 12/07/16 12/07/16 12/07/16 09:15 04:02 04:02 WBC 38.6 H* D RBC 3.32 L Hgb 11.4 L Hct 34.8 L MCV 104.8 H MCH 34.3 H MCHC 32.8 RDW 15.5 H Plt Count 71 L MPV 9.2 L PT INR Sodium 125 L Potassium 4.3 Chloride 100 Carbon Dioxide 12 L BUN 22 H Creatinine 2.06 H Est GFR ( Amer) 30 L Est GFR (Non-Af Amer) 24 L BUN/Creatinine Ratio 11 Glucose 103 H Calculated Osmolality 264 L Lactic Acid 7.7 H* Calcium 7.6 L Ionized Calcium Phosphorus 6.8 H Magnesium 2.2 Pleural pH Pleural Neutrophils Pleural Band Neuts Pleural Lymphocytes % Pleural Monocytes % 12/07/16 12/07/16 12/06/16 04:02 00:10 15:33 WBC RBC Hgb Hct MCV MCH MCHC RDW Plt Count MPV PT 33.7 H INR 3.1 Sodium Potassium 4.7 H Chloride Carbon Dioxide BUN Creatinine Est GFR ( Amer) Est GFR (Non-Af Amer) BUN/Creatinine Ratio Glucose Calculated Osmolality Lactic Acid Calcium Ionized Calcium 1.09 L Phosphorus 6.4 H Magnesium 2.2 Pleural pH 7.36 Pleural Neutrophils 81.0 Pleural Band Neuts 3.0 Pleural Lymphocytes % 11.0 Pleural Monocytes % 5.0 Preliminary micro results at discharge 12/06/16 15:33 Body Fluid Culture - Preliminary Pleural Fluid - Impressions ITS Impressions Abdomen/Pelvis CT 12/06/16 10:45 IMPRESSION: 1. Large chronic right pleural effusion with right middle lobe and right lower lobe opacities. Findings are favored to represent atelectasis although superimposed pneumonia would be difficult to entirely exclude. 2. Cirrhosis with TIPS shunt in place. Patency of the TIPS cannot be evaluated without IV contrast. 3. Small volume ascites. 4. Status post cholecystectomy and hysterectomy. D/ : / 12/06/2016 11:53:37 Salina Benoit MD / jayant Interpreting Provider: Salina Benoit MD Chest CT 12/06/16 10:45 IMPRESSION: 1. Large chronic right pleural effusion with right middle lobe and right lower lobe opacities. Findings are favored to represent atelectasis although superimposed pneumonia would be difficult to entirely exclude. 2. Cirrhosis with TIPS shunt in place. Patency of the TIPS cannot be evaluated without IV contrast. 3. Small volume ascites. 4. Status post cholecystectomy and hysterectomy. D/ /06/2016 11:53:37 Sailna Benoit MD / jayant Interpreting Provider: Salina Benoit MD Chest X-Ray 12/06/16 15:29 IMPRESSION: 1. Interval development of large right pneumothorax with mild mediastinal shift to left concerning for tension pneumothorax. 2. Persistent moderate right pleural effusion, with new moderate left pleural effusion. 3. Findings suggestive of pulmonary edema. D/ / Carlos Oneil MD / Carlos Oneil MD Interpreting Provider: Carlos nOeil MD Chest X-Ray 12/06/16 15:58 IMPRESSION: Chest tube insertion with re-expansion of right lung. Residual 1.5 cm apical pneumothorax. D/ /06/2016 16:21:32 Justen Brown MD / jayant Interpreting Provider: Justen Brown MD Chest X-Ray 12/07/16 07:00 IMPRESSION: No pneumothorax seen on the current study. Residual small right effusion unchanged. D/ / Sunny Bingham MD / Sunny Bingham MD Interpreting Provider: Sunny Bingham MD Retroperitoneum Ultrasound 12/07/16 11:30 IMPRESSION: No evidence of renal mass or obstruction. Small right pleural effusion. Findings of the lower chest and upper abdomen were seen to better advantage on CT from one day earlier. D/ / 12/07/2016 16:09:53 Tyler Bhakta MD / earnold Interpreting Provider: Tyler Bhakta MD - Imaging and Cardiology CT scan - abdomen Status: image reviewed by me CT scan - chest Status: image reviewed by me Chest x-ray Status: image reviewed by me Venous US Status: image reviewed by me Date of admission: 12/05/16 15:52 Primary care physician: Ina Nielsen DO Consults: 12/05/16 18:40 Consult to Pastoral Services [CONS] Routine Comment: Consult to Director Of Advertising Sales [CONS] Routine Reason for SW Consult: cirrhosis. Might have terminal worker needs. 12/07/16 11:54 Consult to Infectious Diseases [CONS] Routine Consulting Provider: Infectious Disease Becki Reason for Consult: lactic acid continues to increase Call Completed: Yes Discharging clinician: Mercy Rosales Anticipated date of discharge: 12/07/16 - Patient Status Disposition: Transfer Other Condition: Critical Functional capacity at discharge: bed bound Overall status at discharge: patient is not back to baseline - Discharge Instructions Follow Up With: Ina Nielsen DO [Primary Care Provider] - Additional Instructions: Transfer to [facility] ICU. Accepting physician is Dr. gaines. - Hospital Course Hospital course: Ms. Rivas is a 61 year old female PMHx of cirrhosis secondary to hepatitis C, TIPSS procedure, HTN, and anxiety presenting to ICU with severe sepsis and lactic acidosis preceded by symptoms of fever and N/V. Patient was found to have a pleural effusion in the right side that was drained by thoracentesis and complicated by tension PTX that was resolved with a chest tube that can be removed in 24 hours. That patient has cano cultures that were negative except for e. coli in the urin and also has a rash on the right anterior tibia suspicious for cellutis. She is currently on day 3 of vancomycin, levaquin, and zosyn. The patient is on midodrine and levophed for pressure support. Current vitals, patient is afebrile, RR 20, HR 90, BP 93/45, and 93% on 3L. Patient received resuscitation with albumin and fluids. She is on the electrolyte protocol for lyte replacement. Patient had a CT of chest and abdomen that showed : Large chronic right pleural effusion with right middle lobe and right lower lobe opacities. Findins are favored to represent atelctasis although superimposed pneumonia would be difficult to entirely exclude. Cirrhosis with TIPS shunt in place. Small volume ascites. S/p cholecystectomy and hysterectomy. Patient also had negative dopplers for her lower extremities after evaluating her for lower extremity pain and rash on the right tibia. Patient labs appreciate a leukocytosis of 38.6, hgb 11.4, PT 33.7, INR 3.1, Na 125, K 4.3, Cr 2.06, BUN 22, GFR 24, Lactic acid of 7.7, BNP 117, albumin 3.0, UA +leuk esterase, pleural fluid cloudy, RBC 0.021, and Tot Nuc Cell 1822. Due to patient's condition not improving, lactic acid remaining elevated and WBC count increasing infectious disease was consulted. Discussed with ICU attending and believe this may be more related to her Liver Disease and we do not have assembly leader at [place]. We discussed transfer to [facility] where patient sees specialist and family requested they be transferred there. Patient has a MELD score of 35. - Time Spent with Patient Total time spent providing and/or coordinating discharge services: Greater than 30 minutes Physical Examination Vital Signs: Vital Signs, Last 4 Hours Temp Pulse Resp BP Pulse Ox 12/07/16 18:00 90 18 93/45 93 12/07/16 17:00 92 20 99/46 90 12/07/16 16:21 96.2 F L 12/07/16 16:00 93 16 90/48 90 12/07/16 15:39 20 89 12/07/16 15:00 93 14 96/44 91 General appearance: asleep Eyes: nonicteric ENT: oropharynx dry Neck: supple Effort: mildly labored Auscultation: bilateral: wheezes Cardiovascular: regular rate and rhythm Gastrointestinal: hypoactive bowel sounds, soft, non-tender Integumentary: erythema, other (area of skin [employer] right anterior tibia tender to touch. No crepitance or drainage. Good DP and PT pulses bilaterally. ) Extremities: no cyanosis, no edema Musculoskeletal: no deformities unable to assess due to mental status (Patient is resting in bed and arouses to sound. ) mood appropriate, affect normal <Mercy Rosales M - Last Filed: 12/07/16 22:48> Date of Encounter: 12/07/16 Labs on day of discharge: Labs from last 24 hours 12/07/16 12/07/16 12/07/16 09:15 04:02 04:02 WBC 38.6 H* D RBC 3.32 L Hgb 11.4 L Hct 34.8 L MCV 104.8 H MCH 34.3 H MCHC 32.8 RDW 15.5 H Plt Count 71 L MPV 9.2 L PT INR Sodium 125 L Potassium 4.3 Chloride 100 Carbon Dioxide 12 L BUN 22 H Creatinine 2.06 H Est GFR ( Amer) 30 L Est GFR (Non-Af Amer) 24 L BUN/Creatinine Ratio 11 Glucose 103 H Calculated Osmolality 264 L Lactic Acid 7.7 H* Calcium 7.6 L Ionized Calcium Phosphorus 6.8 H Magnesium 2.2 12/07/16 12/07/16 04:02 00:10 WBC RBC Hgb Hct MCV MCH MCHC RDW Plt Count MPV PT 33.7 H INR 3.1 Sodium Potassium 4.7 H Chloride Carbon Dioxide BUN Creatinine Est GFR ( Amer) Est GFR (Non-Af Amer) BUN/Creatinine Ratio Glucose Calculated Osmolality Lactic Acid Calcium Ionized Calcium 1.09 L Phosphorus 6.4 H Magnesium 2.2 Preliminary micro results at discharge 12/06/16 15:33 Body Fluid Culture - Preliminary Pleural Fluid - Impressions ITS Impressions Abdomen/Pelvis CT 12/06/16 10:45 IMPRESSION: 1. Large chronic right pleural effusion with right middle lobe and right lower lobe opacities. Findings are favored to represent atelectasis although superimposed pneumonia would be difficult to entirely exclude. 2. Cirrhosis with TIPS shunt in place. Patency of the TIPS cannot be evaluated without IV contrast. 3. Small volume ascites. 4. Status post cholecystectomy and hysterectomy. D/ : / 12/06/2016 11:53:37 Salina Benoit MD / jayant Interpreting Provider: Salina Benoit MD Chest CT 12/06/16 10:45 IMPRESSION: 1. Large chronic right pleural effusion with right middle lobe and right lower lobe opacities. Findings are favored to represent atelectasis although superimposed pneumonia would be difficult to entirely exclude. 2. Cirrhosis with TIPS shunt in place. Patency of the TIPS cannot be evaluated without IV contrast. 3. Small volume ascites. 4. Status post cholecystectomy and hysterectomy. D/ /06/2016 11:53:37 Salina Benoit MD / jayant Interpreting Provider: Salina Benoit MD Chest X-Ray 12/06/16 15:29 IMPRESSION: 1. Interval development of large right pneumothorax with mild mediastinal shift to left concerning for tension pneumothorax. 2. Persistent moderate right pleural effusion, with new moderate left pleural effusion. 3. Findings suggestive of pulmonary edema. D/ / Carlos Oneil MD / Carlos Oneil MD Interpreting Provider: Carlos Oneil MD Chest X-Ray 12/06/16 15:58 IMPRESSION: Chest tube insertion with re-expansion of right lung. Residual 1.5 cm apical pneumothorax. D/ /06/2016 16:21:32 Justen Brown MD / jayant Interpreting Provider: Justen Brown MD Chest X-Ray 12/07/16 07:00 IMPRESSION: No pneumothorax seen on the current study. Residual small right effusion unchanged. D/ / Sunny Bingham MD / Sunny Bingham MD Interpreting Provider: Sunny Bingham MD Retroperitoneum Ultrasound 12/07/16 11:30 IMPRESSION: No evidence of renal mass or obstruction. Small right pleural effusion. Findings of the lower chest and upper abdomen were seen to better advantage on CT from one day earlier. D/ / 12/07/2016 16:09:53 Tyler Bhakta MD / earnold Interpreting Provider: Tyler Bhakta MD Date of admission: 12/05/16 15:52 Primary care physician: Ina Nielsen DO Consults: 12/05/16 18:40 Consult to Pastoral Services [CONS] Routine Comment: Consult to Director Of Advertising Sales [CONS] Routine Reason for SW Consult: cirrhosis. Might have fdc needs. 12/07/16 11:54 Consult to Infectious Diseases [CONS] Routine Consulting Provider: Infectious Disease Becki Reason for Consult: lactic acid continues to increase Call Completed: Yes - Hospital Course Hospital course: Ms. Rivas is a 61 year old female - Time Spent with Patient Total time spent providing and/or coordinating discharge services: - Attending Attestation I examined this patient and my medical decision-making was reviewed with the Resident Physician. I agree with the documented findings, disposition and treatment plan as described except to the extent set forth below. As I explained earlier, patient condition worsened and suspicion was this is all due to her underlying liver disease and the family requested patient to be transferred to [facility] which is appropriate because of her assembly leader is there. Please refer to the resident's note for more details about the course of the hospital.
[2016-12-07] MEDS ORDERED: Aminoglycoside Consult 1 EACH MC ONE (18:30)
[2016-12-08] MEDS ORDERED: Levofloxacin 750 MG/150 ML 750 MG/150 ML BAG IVPB SCH (09:00)
== END 2016-12-07 18:31 | disposition short-term general hospital (02) | DRG 720 ==
LOC: EMEROO 14:11 → ICNU 15:52
PROVIDERS: ADMIT Internal Medicine Pulmonary Disease; ATTEND Internal Medicine Pulmonary Disease